=== PATIENT | female | born 1995 | race Caucasian/White ===

== ENCOUNTER 2019-10-07 08:00 | Outpatient (CLI) | payer OTHER | END 2019-10-07 23:59 | disposition home or self-care (01) | LOC: LAB.R 08:00 | PROVIDERS: ATTEND Obstetrics & Gynecology | DX: R30.0 Dysuria (principal) | CPT/HCPCS: 87086; 87181 ==

== ENCOUNTER 2019-10-28 12:18 | Outpatient (CLI) | payer OTHER ==
[2019-10-28 13:47] LABS: BASOPHILS % (AUTO) 0.4 %; EOSINOPHILS # (AUTO) 0.1 10^3/uL (0.0-0.7); EOSINOPHILS % (AUTO) 0.7 %; LYMPHOCYTES # (AUTO) 1.4 10^3/uL (1.5-3.5); MEAN CORPUSCULAR HEMOGLOBIN 33.1 pg (27.0-31.0); MEAN CORPUSCULAR HGB CONC 34.9 g/dL (32.0-36.0); MEAN CORPUSCULAR VOLUME 94.8 fL (81.0-99.0); MEAN PLATELET VOLUME 9.5 fL (7.9-10.8); MONOCYTES # (AUTO) 0.5 10^3/uL (0.0-1.0); MONOCYTES % (AUTO) 6.6 %; NEUTROPHILS # (AUTO) 5.6 10^3/uL (1.5-6.6); NEUTROPHILS % (AUTO) 73.6 %; PLT - PLATELET COUNT 206 10^3/uL (130-450); RED BLOOD COUNT 3.63 10^6/uL (4.20-5.40); RED CELL DISTRIBUTION WIDTH 12.6 % (12.0-15.0); WHITE BLOOD COUNT 7.5 x10^3/uL (4.8-10.8)
[2019-10-29 08:54] LABS: HIV AG/AB 4TH GEN NON-REACTIVE (NON-REACTIVE)
[2019-10-29 13:03] LABS: HEPATITIS B SURFACE ANTIGEN NON-REACTIVE (NON-REACTIVE); HEPATITIS C ANTIBODY NON-REACTIVE (NON-REACTIVE)
== END 2019-10-28 12:19 | disposition home or self-care (01) ==
LOC: LAB 12:18
PROVIDERS: ATTEND Obstetrics & Gynecology
DX: Z34.90 Encounter for supervision of normal pregnancy, unspecified, unspecified trimester (principal)
CPT/HCPCS: 36415; 81599; 82950; 85025; 85027; 86592; 86762; 86803; 86850; 86900; 86901; 87340; 87389

== ENCOUNTER 2019-12-19 08:00 | Outpatient (CLI) | payer OTHER ==
[2019-12-19 19:25] LABS: BILIRUBIN,URINE NEGATIVE (NEGATIVE); GLUCOSE, URINE (UA) NEGATIVE (NEGATIVE); KETONES,URINE (UA) TRACE mg/dL (NEGATIVE); LEUKOCYTE ESTERASE, URINE SMALL (NEGATIVE); NITRITE,URINE NEGATIVE (NEGATIVE); OCCULT BLOOD,URINE NEGATIVE (NEGATIVE); PH,URINE 7.5 PH (5.0-7.5); PROTEIN,URINE NEGATIVE (NEGATIVE); UROBILINOGEN,URINE 0.2 (NORMAL) E.U./dL (NORMAL)
[2019-12-19 19:32] LABS: CLARITY,URINE HAZY (CLEAR)
[2019-12-19 19:44] LABS: BACTERIA,URINE Moderate /HPF (None Seen); RBC,URINE 0-5 /HPF (0-5); SQUAMOUS EPITHELIAL CELL,UR NONE SEEN (<= Few)
== END 2019-12-19 23:59 | disposition home or self-care (01) ==
LOC: LAB.R 08:00
PROVIDERS: ATTEND Nurse Practitioner Obstetrics & Gynecology
DX: N39.0 Urinary tract infection, site not specified (principal)
CPT/HCPCS: 81001; 87086

== ENCOUNTER 2019-12-26 08:00 | Outpatient (CLI) | payer OTHER | END 2019-12-26 23:59 | disposition home or self-care (01) | LOC: LAB.R 08:00 | PROVIDERS: ATTEND Nurse Practitioner Obstetrics & Gynecology | DX: Z36.85 Encounter for antenatal screening for Streptococcus B (principal) | CPT/HCPCS: 87797 ==

== ENCOUNTER 2020-01-17 23:59 | Outpatient (CLI) | payer OTHER ==
[2020-01-18 00:48] VITALS: BP 125/80
[2020-01-18 01:20] LABS: BASOPHILS % (AUTO) 0.4 %; EOSINOPHILS # (AUTO) 0.1 10^3/uL (0.0-0.7); EOSINOPHILS % (AUTO) 0.8 %; HGB - HEMOGLOBIN 13.2 g/dL (12.0-16.0); LYMPHOCYTES # (AUTO) 2.2 10^3/uL (1.5-3.5); LYMPHOCYTES % (AUTO) 22.1 %; MEAN CORPUSCULAR HEMOGLOBIN 32.9 pg (27.0-31.0); MEAN CORPUSCULAR HGB CONC 35.4 g/dL (32.0-36.0); MEAN PLATELET VOLUME 9.8 fL (7.9-10.8); MONOCYTES # (AUTO) 0.9 10^3/uL (0.0-1.0); MONOCYTES % (AUTO) 8.8 %; NEUTROPHILS # (AUTO) 6.7 10^3/uL (1.5-6.6); NEUTROPHILS % (AUTO) 67.4 %; PLT - PLATELET COUNT 216 10^3/uL (130-450); RED BLOOD COUNT 4.01 10^6/uL (4.20-5.40); RED CELL DISTRIBUTION WIDTH 12.9 % (12.0-15.0)
[2020-01-18 01:41] LABS: BILIRUBIN,URINE NEGATIVE (NEGATIVE); GLUCOSE, URINE (UA) NEGATIVE (NEGATIVE); KETONES,URINE (UA) NEGATIVE (NEGATIVE); LEUKOCYTE ESTERASE, URINE TRACE (NEGATIVE); NITRITE,URINE NEGATIVE (NEGATIVE); OCCULT BLOOD,URINE NEGATIVE (NEGATIVE); PH,URINE 6.5 PH (5.0-7.5); PROTEIN,URINE NEGATIVE (NEGATIVE); UROBILINOGEN,URINE 0.2 (NORMAL) E.U./dL (NORMAL)
[2020-01-18 01:47] LABS: BACTERIA,URINE Rare /HPF (None Seen); CLARITY,URINE CLEAR (CLEAR); RBC,URINE None Seen /HPF (0-5); SQUAMOUS EPITHELIAL CELL,UR MANY Squamous (<= Few)
--- NOTE | 2020-01-18 07:26 | PROVIDER PROGRESS NOTE ---
- HPI Chief Complaint: Labor Check Current : Current EDU 01/17/20 Gestation 40 Weeks and 1 Days 1 Para 0 Vital Signs Temperature 36.7 C 01/18/20 00:32 Heart Rate 76 01/18/20 00:32 Respiratory Rate 18 01/18/20 00:32 Blood Pressure 125/80 01/18/20 00:32 O2 Saturation 99 01/18/20 00:32 Temperature 36.7 C 01/18/20 00:32 Heart Rate 76 01/18/20 00:32 Respiratory Rate 18 01/18/20 00:32 Blood Pressure 125/80 01/18/20 00:32 O2 Saturation 99 01/18/20 00:32 - Procedures OB Procedure Performed: NST NST Procedure: start time:9 stop time:37 - Plan Plan: S: Patient presents to [facility] with c/o contractions. She denies vaginal bleeding or leakage of fluid and reports +FM. She denies urinary symptoms and feels she has consumed an adequate amount of water today. O: FHR baseline 130s, moderate variability, + accels, no decels Contractions palpate mild every 2-3 minutes with soft resting tone SVE closed/thick/high, posterior BP 125/80, T 36.7, HR 76, RR 18 Hc.3 PLT 216 Urine - WNL A: 24yo @ 40.1wks gestation False labor P: Pt orally hydrated and walked x 1 hour without cervical change. Reviewed warning s/sx and when to present. Pt released home with precautions. DIAGNOSIS: FALSE Labor
== END 2020-01-18 01:55 | disposition home or self-care (01) ==
LOC: WFO 23:59 → FBP 01-18 → WFO 01-18 01:55
PROVIDERS: ATTEND Nurse Practitioner Obstetrics & Gynecology
DX: O47.1 False labor at or after 37 completed weeks of gestation (principal); Z3A.40 40 weeks gestation of pregnancy
CPT/HCPCS: 81001; 85025; 99214

== ENCOUNTER 2020-01-20 01:24 | Inpatient (IN) | payer OTHER ==
[2020-01-20 02:09] LABS: RUPTURE OF MEMBRANES PLUS POSITIVE (NEGATIVE)
[2020-01-20] MEDS ORDERED: miSOPROStoL 200 MCG TABLET BC PRN (02:36)
[2020-01-20] MEDS ORDERED: METHYLERGONOVINE 0.2 MG/ML VIAL IM PRN (02:36)
[2020-01-20] MEDS ORDERED: TRANEXAMIC ACID 1,000 MG in SODIUM CHLORIDE 0.9% 100ML 100 ML IV PRN (02:36)
[2020-01-20] MEDS ORDERED: OXYTOCIN/SODIUM CHLORIDE 500 ML IV PRN (02:36)
[2020-01-20] MEDS ORDERED: SODIUM CHLORIDE FLUSH 0.9% 10 ML SYRINGE IVP PRN (02:36)
[2020-01-20] MEDS ORDERED: CARBOPROST TROMETHAMINE 250 MCG/ML AMP IM PRN (02:36)
[2020-01-20] MEDS ORDERED: LIDOCAINE-MPF 1% 30 ML VIAL ID PRN (02:36)
[2020-01-20] MEDS ORDERED: OXYTOCIN 10 UNIT/ML VIAL IM PRN (02:36)
[2020-01-20 04:58] LABS: BASOPHILS % (AUTO) 0.3 %; EOSINOPHILS # (AUTO) 0.1 10^3/uL (0.0-0.7); EOSINOPHILS % (AUTO) 0.7 %; HGB - HEMOGLOBIN 12.4 g/dL (12.0-16.0); LYMPHOCYTES # (AUTO) 1.9 10^3/uL (1.5-3.5); LYMPHOCYTES % (AUTO) 22.1 %; MEAN CORPUSCULAR HEMOGLOBIN 33.1 pg (27.0-31.0); MEAN CORPUSCULAR HGB CONC 35.2 g/dL (32.0-36.0); MEAN CORPUSCULAR VOLUME 93.9 fL (81.0-99.0); MONOCYTES # (AUTO) 0.7 10^3/uL (0.0-1.0); MONOCYTES % (AUTO) 8.2 %; NEUTROPHILS # (AUTO) 5.9 10^3/uL (1.5-6.6); NEUTROPHILS % (AUTO) 68.4 %; PLT - PLATELET COUNT 190 10^3/uL (130-450); RED BLOOD COUNT 3.75 10^6/uL (4.20-5.40); RED CELL DISTRIBUTION WIDTH 12.8 % (12.0-15.0); WHITE BLOOD COUNT 8.6 x10^3/uL (4.8-10.8)
[2020-01-20] MEDS ORDERED: miSOPROStoL 100 MCG TABLET BC ONE (06:25)
[2020-01-20] MEDS ORDERED: SODIUM CHLORIDE FLUSH 0.9% 10 ML SYRINGE IVP SCH (09:00)
--- NOTE | 2020-01-20 12:13 | PREOP HISTORY & PHYSICAL ---
DATE OF SERVICE: 01/20/2020 Physician: Anthony Gabriel MD IDENTIFICATION The patient is a 24-year-old G1, P0 female. Her EDC was noted to be 01/17/2020, thi s makes her 40 weeks and 3 days. HISTORY OF PRESENT ILLNESS The patient states that at roughly 1 o'clock this morning she felt fluid leaking. She had minimal contractions at that time. She presented here and received misoprostol 25 mcg at 0639. Her OB care started with us at 25 weeks EGA. Her course has been unremarkab le. Her blood pressures have all been normal. Her labs show her to be O positive, she is rubella im mune. Her SDI check has all been negative. Her 50 gram Glucola was 109. Her GBS test was also negat odilia. PAST MEDICAL HISTORY The patient denies any hypertensive, diabetic, cardiac or pulmonary disease. PAST SURGICAL HISTORY Partial hymenectomy in 2018. ALLERGIES NONE KNOWN. CURRENT MEDICATIONS vitamins. She has also been taking nitrofurantoin for suppression for chronic UTIs. HABITS The patient denies use of alcohol, tobacco, street or addictive drugs. SOCIAL HISTORY The patient is and lives with her . She works as a homemaker. HABITS The patient denies use of alcohol, tobacco, street or addictive drugs, or any marijuana. PHYSICAL EXAMINATION GENERAL The patient is a well-developed, well-nourished female, she is thin in character. VITAL SIGNS Her temperature is 36.7. Her pulse rate is 82, and blood pressure 125/81. HEENT Pupils equal, round. Extraocular muscles are intact. NECK Thyroid is not palpably enlarged. HEART Regular rate and rhythm without murmurs. CHEST The lung wells are clear without rales or wheezes. ABDOMEN Gravid. At her most recent visit her fundal height was noted to be 39 cm. PELVIC Her cervical examination on admission was 1.5 cm, 50% effaced: EXTREMITIES DTRs are +1 and symmetrical. IMPRESSION 1. A 24-year-old primigravida at 40 weeks and 3 days. 2. Spontaneous rupture of membranes. 3. Unfavorable cervix. 4. The patient is in early labor. PLAN: Will reexamine in 4 hours and see if she is progressing. She appears to be developing contrac tions. I have discussed the issues of epidural and labor pain control. TD: 01/20/2020 09:34
--- NOTE | 2020-01-20 16:25 | PROVIDER PROGRESS NOTE ---
Labor Progress Note - Uterine Monitoring Uterine Monitoring Mode: positive: External toco Contraction Frequency (min/apart): 3-5 Contraction Intensity: positive: Moderate Uterine Resting Tone: positive: Soft - Monitoring Monitor Mode: positive: External ultrasound Heart Rate Baseline: 135 Heart Rate Variability: positive: Moderate (6-25 bmp) Accelerations: positive: Present, 15x15 Decelerations: positive: None Strip Review: positive: Category I - Vaginal Exam Dilation (in cm): 2 Effacement (%): 80 Station: -3 Cervical Position: Midposition - Labor Progress Note Labor Progress Note/Additional Text: Late entry 1400 Pr increasing pain and slow progress. sugested Pit with rupture of forebag.
--- NOTE | 2020-01-20 16:27 | PROVIDER PROGRESS NOTE ---
Labor Progress Note - Uterine Monitoring Uterine Monitoring Mode: positive: External toco Contraction Frequency (min/apart): 5 Contraction Intensity: positive: Moderate to strong Uterine Resting Tone: positive: Soft - Monitoring Monitor Mode: positive: External ultrasound Heart Rate Baseline: 135 Accelerations: positive: Present, 15x15 Decelerations: positive: None Strip Review: positive: Category I - Labor Progress Note Labor Progress Note/Additional Text: Contractions waning. Reviewed Pit pt would like to avoid if possible. Will walk if not strong will initiate, reviewed Fent and epidural.
[2020-01-20] MEDS ORDERED: ONDANSETRON 4 MG/2 ML VIAL IVP PRN (16:28)
[2020-01-20] MEDS ORDERED: OXYTOCIN/SODIUM CHLORIDE 500 ML IV SCH (17:18)
[2020-01-20] MEDS: LACTATED RINGERS 1,000 ML IV SCH (17:45)
--- NOTE | 2020-01-20 19:32 | PROVIDER PROGRESS NOTE ---
Labor Progress Note - Uterine Monitoring Uterine Monitoring Mode: positive: External toco Contraction Frequency (min/apart): 3-4 Contraction Intensity: positive: Moderate to strong Uterine Resting Tone: positive: Soft - Monitoring Heart Rate Baseline: 140 Heart Rate Variability: positive: Moderate (6-25 bmp) Accelerations: positive: Present, 15x15 Decelerations: positive: None Strip Review: positive: Category I - Vaginal Exam Dilation (in cm): 3 Effacement (%): 90 Station: -3 Cervical Position: Posterior - Labor Progress Note Labor Progress Note/Additional Text: AROM fore bag Clear fluid
[2020-01-20] MEDS ORDERED: fentaNYL 100 MCG/2 ML VIAL ONE (23:57)
[2020-01-20] MEDS ORDERED: BUPIVACAINE 0.25% PF 10 ML VIAL ONE (23:57)
[2020-01-20] MEDS ORDERED: ROPIVACAINE 0.2% 200 MG/100 ML BAG EP ONE (23:58)
[2020-01-21] MEDS: LACTATED RINGERS 1,000 ML IV SCH (00:16)
[2020-01-21] MEDS ORDERED: ROPIVACAINE 0.2% PF 20ML VIAL ONE (00:37)
[2020-01-21] MEDS ORDERED: NALOXONE 0.4 MG/ML VIAL IVP PRN (01:02)
[2020-01-21] MEDS ORDERED: ONDANSETRON 4 MG/2 ML VIAL IVP PRN (01:02)
[2020-01-21] MEDS ORDERED: METOCLOPRAMIDE 10 MG/2 ML VIAL IVP PRN (01:02)
[2020-01-21] MEDS ORDERED: diphenhydrAMINE INJ 50 MG/ML VIAL IVP PRN ×2 (01:02→06:28)
[2020-01-21] MEDS ORDERED: NALBUPHINE 10 MG/ML AMP IVP PRN (01:02)
[2020-01-21] MEDS ORDERED: ePHEDrine 50 MG/ML VIAL IVP PRN (01:02)
[2020-01-21] MEDS ORDERED: ROPIVACAINE 0.2% 200 MG/100 ML BAG EP PRN (01:02)
--- NOTE | 2020-01-21 01:02 | ANESTHESIA ---
Pre-Anesthesia VS, & Labs - Diagnosis active labor - Procedure labor epidural Vital Signs: Temp Pulse Resp BP Pulse Ox 36.7 C 82 16 125/81 H 99 01/20/20 02:25 01/20/20 01:36 01/20/20 01:36 01/20/20 01:36 01/20/20 01:36 Height: 5 ft 4 in Weight (kg): 69.853 kg Body Mass Index: 26.4 BMI Classification: Overweight - Is Patient ?: Yes - Lab Results Current Lab Results: Laboratory Tests 01/20/20 03:10: WBC 8.6, RBC 3.75 L, Hgb 12.4, Hct 35.2 L, MCV 93.9, MCH 33.1 H, MCHC 35.2, RDW 12.8, Plt Count 190, MPV 10.0, Neut # (Auto) 5.9, Lymph # (Auto) 1.9, [place] # (Auto) 0.7, Eos # (Auto) 0.1, Baso # (Auto) 0.0, Absolute Nucleated RBC 0.00, Nucleated RBC % 0.0 01/20/20 03:10: Blood Type O POSITIVE, Antibody Screen NEGATIVE Lab results reviewed: Yes Fish Bones: 01/20/20 03:10 Home Medications and Allergies Active Medications Carboprost Tromethamine (Hemabate) 250 mcg IM Q15M PRN PRN Reason: Step 4: Hemorrhage protocol Stop: 01/25/20 02:37 Oxytocin/Sodium Chloride (Pitocin/Sodium Chloride) 500 mls @ 999 mls/hr IV PRN PRN; Protocol PRN Reason: POST- HEMORR PREVENTION Stop: 01/25/20 02:37 Tranexamic Acid 1,000 mg/ (Sodium Chloride) 110 mls @ 660 mls/hr IV .ONCE PRN PRN Reason: EBL >1200mL and within 3hr Stop: 01/25/20 02:37 Lactated Ringer's (Lr) 1,000 mls @ 150 mls/hr IV .Q6H40M NI Last Admin: 01/21/20 00:16 Dose: 150 mls/hr Documented by: Oxytocin/Sodium Chloride (Pitocin/Sodium Chloride) 500 mls @ 1 mls/hr IV TITR NI; Protocol Last Titration: 01/20/20 18:25 Dose: 2 milliunit/min, 2 mls/hr Documented by: Lidocaine HCl (Xylocaine-Mpf 1% Vial) 30 ml ID .ONCE PRN PRN Reason: PERINEAL REPAIR Stop: 01/25/20 02:37 Methylergonovine Maleate (Methergine Inj) 0.2 mg IM .ONCE PRN PRN Reason: Step 2: Hemorrhage protocol Stop: 01/25/20 02:37 Misoprostol (Cytotec) 800 mcg BC .ONCE PRN PRN Reason: Step 3: Hemorrhage protocol Stop: 01/25/20 02:37 Ondansetron HCl (Zofran Inj) 4 mg IVP Q6HR PRN PRN Reason: Nausea / Vomiting Oxytocin (Pitocin) 10 unit IM .ONCE PRN PRN Reason: Step one: If no IV access Stop: 01/25/20 02:37 Sodium Chloride (Normal Saline Flush 0.9%) 10 ml IVP PRN PRN PRN Reason: NEEDED PER PROVIDER ORDERS Sodium Chloride (Normal Saline Flush 0.9%) 10 ml IVP 0100,0900,1700 NI Last Admin: 01/20/20 17:45 Dose: 10 ml Documented by: Allergies/Adverse Reactions: Allergies Allergy/AdvReac Type Severity Reaction Status Date / Time No Known Drug Allergies Allergy Verified 01/20/20 02:30 Anes History & Medical History - Anesthetic History Anesthesia Complications: reports: No previous complications Family history of Anesthesia Complications: Denies Family history of Malignant Hyperthermia: Denies - Medical History Neuro: reports: Other (history of mild spina bifida) Smoking Status: Never smoker Exam General: Alert, Oriented x3, Cooperative, No acute distress Plan Anesthesia Type: Epidural Consent for Procedure(s) Verified and Reviewed: Yes Code Status: Attempt Resuscitation ASA classification: 2-Mild systemic disease Is this case an emergency?: No
[2020-01-21] MEDS ORDERED: WITCH HAZEL/GLYCERIN 1 PAD TOP PRN (06:05)
[2020-01-21] MEDS ORDERED: HYDROCORTISONE 1% CREAM 28 GM TUBE PR PRN (06:05)
[2020-01-21] MEDS ORDERED: oxyCODONE 5 MG TABLET PO PRN (06:05)
[2020-01-21] MEDS ORDERED: diphenhydrAMINE 25 MG CAPSULE PO PRN (06:05)
--- NOTE | 2020-01-21 06:16 | DELIVERY NOTE ---
Delivery Note - Labor Labor: positive: Spontaneous, Augmented by oxytocin - Delivery Method Delivery Method: positive: Spontaneous vaginal delivery - Cervical Ripening Method Cervical Ripening Method: positive: Misoprostil - Presentation Presentation: positive: Vertex, NATHANIEL - left occiput anterior - Nuchal Cord Nuchal Cord: positive: None - Anesthetic Anesthetic Type: - Amniotic Fluid Description Amniotic Fluid Description: positive: Clear - Episiotomy Type Episiotomy Type: positive: None - Laceration Laceration: positive: None - : positive: Placed in direct skin contact with mother, Bulb syringe, Stimulated sex: positive: Male - Cord Cord: positive: 3 vessels - Placenta Placenta: positive: Intact, Spontaneous - Estimated Blood Loss Estimated Blood Loss (in cc): 250 - Post Delivery Events Post Delivery Events: positive: No post delivery events - Delivery Comments (Free Text/Narrative) Delivery Comments (Free Text/Narrative): Patient believes she spontaneously ruptured at 0 45 on the morning of the 12th. Pt presented at about 4:00. She had contractions but was not doing anything arturo t was strong. Patient was resistant to the use of any kind of Pitocin. She received misoprostol for cervical ripening. She had a fore bag ruptured at 1927 clear amniotic fluid was encountered. Patient initially eventually had Pitocin for contractions. She relinquished and had an epidural for labor analgesia. This helped her relax significantly. She progressed to complete at 0 426. And started pushing soon thereafter. At 0 545 she delivered a live male with Apgars 8 and 9 in the left occiput anterior position. No nuchal cords are noted at time of delivery. Infant was placed on the maternal abdomen waiting for the cord to stop pulsating and then was clamped and divided. Cord blood samples were obtained and following a 13-minute second stage the placenta was delivered inspected and noted to be intact. The vaginal canal was inspected there was some minor tears in the hymenal ring however there were no vaginal labial or perineal lacerations. Her total blood loss was roughly 250 cc both mother and infant tolerated delivery well. weight is pending at this time.
[2020-01-21] MEDS ORDERED: LACTATED RINGERS 1,000 ML IV SCH (07:00)
[2020-01-21] MEDS: ACETAMINOPHEN 325 MG TABLET PO PRN ×2 (08:23→20:00)
[2020-01-21] MEDS: IBUPROFEN 600 MG TABLET PO SCH ×3 (08:23→19:57)
[2020-01-21] MEDS ORDERED: DOCUSATE SODIUM 100 MG CAPSULE PO SCH (09:00)
[2020-01-22] MEDS: IBUPROFEN 600 MG TABLET PO SCH ×2 (03:07→11:37)
[2020-01-22] MEDS: ACETAMINOPHEN 325 MG TABLET PO PRN ×2 (03:07→11:37)
[2020-01-22 05:34] LABS: BASOPHILS # (AUTO) 0.1 10^3/uL (0.0-0.1); BASOPHILS % (AUTO) 0.5 %; EOSINOPHILS # (AUTO) 0.1 10^3/uL (0.0-0.7); EOSINOPHILS % (AUTO) 0.9 %; HGB - HEMOGLOBIN 10.4 g/dL (12.0-16.0); LYMPHOCYTES # (AUTO) 2.1 10^3/uL (1.5-3.5); LYMPHOCYTES % (AUTO) 19.8 %; MEAN CORPUSCULAR HEMOGLOBIN 33.4 pg (27.0-31.0); MEAN CORPUSCULAR HGB CONC 35.4 g/dL (32.0-36.0); MEAN CORPUSCULAR VOLUME 94.5 fL (81.0-99.0); MEAN PLATELET VOLUME 9.8 fL (7.9-10.8); MONOCYTES # (AUTO) 0.9 10^3/uL (0.0-1.0); MONOCYTES % (AUTO) 8.8 %; NEUTROPHILS # (AUTO) 7.3 10^3/uL (1.5-6.6); NEUTROPHILS % (AUTO) 69.3 %; PLT - PLATELET COUNT 162 10^3/uL (130-450); RED BLOOD COUNT 3.11 10^6/uL (4.20-5.40); RED CELL DISTRIBUTION WIDTH 13.1 % (12.0-15.0); WHITE BLOOD COUNT 10.5 x10^3/uL (4.8-10.8)
--- NOTE | 2020-01-22 09:04 | PROVIDER PROGRESS NOTE ---
Subjective - Prog Note Date Prog Note Date: 01/22/20 Prog Note Time: 09:02 - Subjective Pt reports feeling: Improved ([place] 04/18 feels brused. milk not in. desires to go home) Objective - Vital Signs/Intake & Output Reviewed Vital Signs: Yes Vital Signs: Vital Signs x48h Temp Pulse Resp BP Pulse Ox 01/22/20 04:00 36.8 C 71 16 99/51 L 98 Intake & Output: Intake & Output 01/19/20 01/20/20 01/21/20 01/22/20 23:59 23:59 23:59 23:59 Intake Total 0.683 1077.5 Output Total 1600 Balance 0.683 -522.5 - Objective General Appearance: positive: No acute distress, Alert Respiratory: positive: Chest non-tender, No respiratory distress, Breath sounds nml Cardiovascular: positive: Regular rate & rhythm, No murmur, No gallop Abdomen: positive: Non-tender, Mass (at U) Back: negative: CVA tenderness (R), CVA tenderness (L) Extremities: negative: Calf tenderness, Sadnra's sign/cords - Lab Results Fish Bones: 01/22/20 05:20 Other Labs: Lab Results x24hrs 01/22/20 Range/Units 05:20 WBC 10.5 (4.8-10.8) x10^3/uL RBC 3.11 L (4.20-5.40) 10^6/uL Hgb 10.4 L (12.0-16.0) g/dL Hct 29.4 L (37.0-47.0) % MCV 94.5 (81.0-99.0) fL MCH 33.4 H (27.0-31.0) pg MCHC 35.4 (32.0-36.0) g/dL RDW 13.1 (12.0-15.0) % Plt Count 162 (130-450) 10^3/uL MPV 9.8 (7.9-10.8) fL Neut # (Auto) 7.3 H (1.5-6.6) 10^3/uL Lymph # (Auto) 2.1 (1.5-3.5) 10^3/uL [place] # (Auto) 0.9 (0.0-1.0) 10^3/uL Eos # (Auto) 0.1 (0.0-0.7) 10^3/uL Baso # (Auto) 0.1 (0.0-0.1) 10^3/uL Absolute Nucleated RBC 0.00 x10^3/uL Nucleated RBC % 0.0 /100WBC Assessment/Plan - Problem List (1) (spontaneous vaginal delivery) Impression: Excellent progress
[2020-01-22 14:57] VITALS: BP 108/58
--- NOTE | 2020-01-22 16:35 | Labor Flowsheet ---
Labor Flowsheet Datetime Report Generated by CPN: 01/22/2020 16:34 Datetime: 01/22/2020 14:53 VITAL SIGNS NBP Sys/[place]ald/Mean (mmHg): 108 : 58 : 68 Pulse: 87 Datetime: 01/21/2020 19:12 Stage of : Recovery Respirations: 16 SpO2 (%): 98 Temperature (C): 36.7 Datetime: 01/21/2020 08:01 Epidural Procedure Other: Cath Intact Anesthesia Comments: cath removed Datetime: 01/21/2020 07:00 Pain Presence: None/Denies Datetime: 01/21/2020 06:45 PAIN Pain Scale: 0 Datetime: 01/21/2020 05:54 LaborFlag: Labor Datetime: 01/21/2020 05:45 UTERINE ACTIVITY Monitor Mode: External Frequency (min): 1.5-3 Quality: Strong Duration (sec): 50-80 Pattern: Normal: <= 5 Contractions in 10 Minutes Resting Tone (Palpate): Relaxed ASSESSMENT A Monitor Mode: Telemetry FHR Baseline Rate : 145 Datetime: 01/21/2020 05:30 Variability: Moderate 6-25 bpm Accelerations: 15X15 Decelerations: Variable Anesthesia Level Check: T9 Datetime: 01/21/2020 04:55 Patient Care Comments: emesis 200ml Datetime: 01/21/2020 04:54 I/O Interventions: [place] Discontinued Datetime: 01/21/2020 04:45 COMMUNICATION Communication: Call/Page Placed to Provider Provider Notified (Name): Giem Communication Comments: Come to attend delivery Datetime: 01/21/2020 04:43 Pushing Position: Pushing with Contractions Pushing Progress: Descent with Pushing Datetime: 01/21/2020 04:27 STAGE 2 Pushing: Coached on Pushing Datetime: 01/21/2020 04:26 VAGINAL EXAM Dilatation (cm): 10.0 Datetime: 01/21/2020 02:39 Temperature Route: Oral Pain Type: Cramping Datetime: 01/21/2020 02:35 Vaginal Exam Comments: ant lip Datetime: 01/21/2020 02:00 Pitocin Checklist: At Least 1 Acceleration of 15 bpm x 15 Seconds in 30 Minutes or Adequate Variabi lity; No More than 1 Late Deceleration Occurred in Past 30 Minutes; No More than 2 Variable Decelerat ions > 60 Seconds in Duration and decreasing >60 bpm in 30 minutes; No More than 5 Uterine Contractio ns in 10 Minutes for any 20 Minute Interval; Uterus Palpates Soft between Contractions Datetime: 01/21/2020 01:45 FHR Baseline Changes: No Baseline Change Datetime: 01/21/2020 01:22 Patient Position/Activity: Right Lateral (Annotations: with peanut ball) Datetime: 01/21/2020 01:19 MEDICATIONS Pitocin (milliunits): Increased to @ 3 Datetime: 01/21/2020 01:00 Monitor Interventions for UA: [place] Adjusted Datetime: 01/21/2020 00:48 Epidural Procedure: Test Dose Datetime: 01/21/2020 00:45 Pain Location: Abdomen; Back Datetime: 01/21/2020 00:39 Epidural Positioning: Sitting Datetime: 01/20/2020 23:55 PROCEDURE TIME OUT Procedure Verify: Correct Patient Identity; Correct Side and Site are Marked; Accurate Procedure Co nsent Form; Agreement on Procedure to be Done; Correct Patient Position ANESTHESIA Anesthesia Plans: Epidural Datetime: 01/20/2020 23:37 Hygiene: Underpad Changed; Gown Changed; Linens Changed Datetime: 01/20/2020 23:20 Effacement (%): 90 Station: 0 Datetime: 01/20/2020 22:20 Comfort Measures: Breathing/Relaxation; Hot Shower/Tub/Spa Datetime: 01/20/2020 22:09 Cervix, Consistency: Soft Cervix, Position: Midposition Datetime: 01/20/2020 20:15 Category: Category I Datetime: 01/20/2020 20:00 Monitor Interventions for FHR: Ultrasound Adjusted Datetime: 01/20/2020 19:27 Exam by: dr Giem Membrane Status: Ruptured Amniotic Fluid Color: Clear Amniotic Fluid Amount: Moderate Amniotic Fluid Odor: Normal Membrane Comments: rupture of forebag Datetime: 01/20/2020 17:46 Pain Goal: 10 Pain Coping: Talking Through Contractions; Breathing Through Contractions Datetime: 01/20/2020 17:45 Medication Comments: LR #1 started at 150ml/hr Datetime: 01/20/2020 17:02 Comments: maternal heart recorded Datetime: 01/20/2020 14:00 Vaginal Bleeding: Normal Show Datetime: 01/20/2020 13:10 Pain Relief Measures: Comfort Measures Datetime: 01/20/2020 10:22 Contraction Comments: ctx unchanged per Pt. Datetime: 01/20/2020 09:33 MATERNAL ASSESSMENT Level of Consciousness: Alert DTR's/Clonus: DTRs 2+; No Clonus Headache: Denies Nausea/Vomiting: Present RUQ Epigastric Pain: Denies Datetime: 01/20/2020 09:31 PATIENT CARE Oxygen Method: Room Air Datetime: 01/20/2020 07:22 TEACHING Instructional Method: Verbal Plan of Care: Plan of Care Discussed; Vaginal Delivery; Labor Unit Routine: Call [place]; Bed; Phone/Cell Phone Use; Monitoring; Safety/Fall Risk Prevention; Diet/Nutrition Services; Bathroom Privileges; Medications Labor/Induction: Labor Stages; Meconium; Activity; Pushing Methods Pain Management: IV Narcotics; Epidural; PRN Medications; Comfort Measures Medications: Cervical Ripening PTL/PROM: Hydration; Signs/Symptoms of Infection; Expected Outcomes Related: Common Discomforts of ; Maternal Physical Changes; Maternal Emotional C hanges; Nutrition; Activity and Rest Teaching Comments: Both pt. and spouse verbalized understanding. Datetime: 01/20/2020 06:40 Cervical Ripening Agents: Cytotec @ Datetime: 01/20/2020 06:18 Provider Reviewed Strip: No Notification Reason: Status Update; Status; Labor Status; Uterine Activity; Pain Datetime: 01/20/2020 06:04 Vital Sign Comments:
--- NOTE | 2020-01-22 16:51 | DISCHARGE SUMMARY ---
Physician: Anthony Gabriel MD DATE OF ADMISSION: 01/20/2020 DATE OF DISCHARGE: 01/22/2020 ADMITTING DIAGNOSIS: A 24-year-old G1, P0 female with spontaneous rupture of membranes at 40 weeks and 3 days. DISCHARGE DIAGNOSIS: A 24-year-old G1, P0 female with spontaneous rupture of membranes at 40 weeks and 3 days. PROCEDURES 1. Misoprostol. 2. Pitocin augmentation. 3. Epidural. 4. Spontaneous vaginal delivery. PRESENTING HISTORY: Patient is a 24-year-old 1, para 0, who is 40 weeks and 3 days upon admission at roughly 1 a.m. in the morning. She felt leaking of vaginal fluid. She presented to labor and delivery, at which time her cervical exam showed her to be fingertip, 50% effaced. Her OB care was unremarkable. Her 50 gram Glucola was 109. She was rubella immune, and she was noted to be O positive. LABORATORIES On admission, white count was 8.6, hemoglobin 12.4, hematocrit 35.2, platelets 190. On 01/22/2020, her white count was 10.5, hemoglobin 10.4, hematocrit 29.4, platelets 164. Patient also had positive ROM plus test. HOSPITAL COURSE: Patient was admitted, given misoprostol for cervical ripening. She was very reticent to utilize any Pitocin or epidural. She has shown little or no progress, and so she had her forebag artificially ruptured. Her labor did not become very strong at that time, so Pitocin was administered. She got up 3 units. She developed difficulty with pain and had an epidural placed for labor analgesia. At this point, her cervix went fairly quickly to complete. She delivered a live male at 0545. Apgars were 8 and 9. Her total blood loss was 250 mL. Her course has been unremarkable. She has done well. She is very desirous to go home. She is aware of our usual practice of keeping mothers here for 48 hours, particularly if they are a primigravida. Her has been discharged by pediatrics; therefore, we will allow her to go home. DISCHARGE MEDICATIONS: Tylenol. She is to follow up in the clinic in 1 week. She has been cautioned regarding infection. TD: 01/22/2020 13:36 [facility]
== END 2020-01-22 16:15 | disposition home or self-care (01) | DRG 805 ==
LOC: WFO 01:24 → FBP 01:25 → WFO 02:35 → FBP 02:36
PROVIDERS: ADMIT Obstetrics & Gynecology; ATTEND Obstetrics & Gynecology
PROC: 10E0XZZ Delivery of Products of Conception, External Approach (ICD-10-PCS; principal; 2020-01-21)
DX: O48.0 Post-term pregnancy (principal); O70.0 First degree perineal laceration during delivery; O75.3 Other infection during labor; Z37.0 Single live birth; Z3A.40 40 weeks gestation of pregnancy; Z79.899 Other long term (current) drug therapy
CPT/HCPCS: 36415; 84112; 85025; 86850; 86900; 86901; 99213; A9270; J2795; J7120

== ENCOUNTER 2020-05-03 08:00 | Outpatient (CLI) | payer OTHER ==
[2020-05-03 20:57] LABS: CANDIDA GROUP DNA NEGATIVE (NEGATIVE); CANDIDA KRUSEI DNA NEGATIVE (NEGATIVE); TRICHOMONAS VAGINALIS DNA NEGATIVE (NEGATIVE)
== END 2020-05-03 23:59 | disposition home or self-care (01) ==
LOC: LAB.R 08:00
PROVIDERS: ATTEND Advanced Practice Midwife
DX: B37.9 Candidiasis, unspecified (principal)
CPT/HCPCS: 87661; 87801

== ENCOUNTER 2020-12-22 08:00 | Outpatient (CLI) | payer OTHER ==
[2020-12-22 23:04] LABS: CHLAMYDIA TRACHOMATIS DNA NEGATIVE (NEGATIVE); NEISSERIA GONORRHOEAE DNA NEGATIVE (NEGATIVE); TRICHOMONAS VAGINALIS DNA NEGATIVE (NEGATIVE)
== END 2020-12-22 23:59 | disposition home or self-care (01) ==
LOC: LAB.WC 08:00
PROVIDERS: ATTEND Nurse Practitioner Obstetrics & Gynecology
DX: N89.8 Other specified noninflammatory disorders of vagina (principal)
CPT/HCPCS: 87491; 87591; 87661

== ENCOUNTER 2021-04-22 17:16 | Outpatient (CLI) | payer OTHER | END 2021-04-22 17:17 | disposition home or self-care (01) | LOC: LAB 17:16 | PROVIDERS: ATTEND Obstetrics & Gynecology | DX: Z32.01 Encounter for pregnancy test, result positive (principal) | CPT/HCPCS: 36415; 84702 ==

== ENCOUNTER 2021-05-02 08:00 | Outpatient (CLI) | payer OTHER | END 2021-05-02 23:59 | LOC: LAB 08:00 | PROVIDERS: ATTEND Family Medicine | DX: R30.0 Dysuria (principal) | CPT/HCPCS: 87077; 87086; 87181 ==

== ENCOUNTER 2021-05-10 13:33 | Outpatient (CLI) | payer OTHER | END 2021-05-10 13:34 | disposition home or self-care (01) | LOC: LAB 13:33 | PROVIDERS: ATTEND Obstetrics & Gynecology | DX: Z32.01 Encounter for pregnancy test, result positive (principal) | CPT/HCPCS: 36415; 84702 ==

== ENCOUNTER 2021-05-11 08:00 | Outpatient (CLI) | payer OTHER ==
[2021-05-11 13:40] LABS: BILIRUBIN,URINE NEGATIVE (NEGATIVE); GLUCOSE, URINE (UA) NEGATIVE (NEGATIVE); KETONES,URINE (UA) NEGATIVE (NEGATIVE); LEUKOCYTE ESTERASE, URINE NEGATIVE (NEGATIVE); NITRITE,URINE NEGATIVE (NEGATIVE); OCCULT BLOOD,URINE NEGATIVE (NEGATIVE); PROTEIN,URINE NEGATIVE (NEGATIVE); UROBILINOGEN,URINE 0.2 (NORMAL) E.U./dL (NORMAL)
[2021-05-11 13:44] LABS: CLARITY,URINE CLEAR (CLEAR)
[2021-05-11 13:48] LABS: BACTERIA,URINE Few /HPF (None Seen); RBC,URINE 0-5 /HPF (0-5); SQUAMOUS EPITHELIAL CELL,UR FEW Squamous (<= Few); WBC,URINE 0-3 /HPF (0-5)
== END 2021-05-11 23:59 | disposition home or self-care (01) ==
LOC: LAB 08:00
PROVIDERS: ATTEND Obstetrics & Gynecology
DX: R30.0 Dysuria (principal)
CPT/HCPCS: 81001; 87086

== ENCOUNTER 2021-06-21 10:28 | Outpatient (CLI) | payer OTHER | END 2021-06-21 10:29 | disposition home or self-care (01) | LOC: LAB 10:28 | PROVIDERS: ATTEND Nurse Practitioner Obstetrics & Gynecology | DX: O20.0 Threatened abortion (principal) | CPT/HCPCS: 36415; 84702 ==

== ENCOUNTER 2021-06-28 13:50 | Outpatient (CLI) | payer OTHER ==
[2021-06-28 15:41] LABS: BILIRUBIN,URINE NEGATIVE (NEGATIVE); CLARITY,URINE HAZY (CLEAR); GLUCOSE, URINE (UA) NEGATIVE (NEGATIVE); KETONES,URINE (UA) NEGATIVE (NEGATIVE); LEUKOCYTE ESTERASE, URINE LARGE (NEGATIVE); NITRITE,URINE POSITIVE (NEGATIVE); OCCULT BLOOD,URINE LARGE (NEGATIVE); PH,URINE 7.5 PH (5.0-7.5); PROTEIN,URINE 30 mg/dL (NEGATIVE); UROBILINOGEN,URINE 0.2 (NORMAL) E.U./dL (NORMAL)
[2021-06-28 16:30] LABS: BACTERIA,URINE Few /HPF (None Seen); SQUAMOUS EPITHELIAL CELL,UR RARE Squamous (<= Few)
== END 2021-06-28 13:51 | disposition home or self-care (01) ==
LOC: LAB 13:50
PROVIDERS: ATTEND Nurse Practitioner Obstetrics & Gynecology
DX: R30.9 Painful micturition, unspecified (principal)
CPT/HCPCS: 81001; 87086

== ENCOUNTER 2021-09-19 12:11 | Outpatient (CLI) | payer OTHER ==
[2021-09-19 12:37] LABS: ALBUMIN 4.6 g/dL (3.2-5.5); ALBUMIN/GLOBULIN RATIO 1.5 (1.0-2.2); BILIRUBIN,TOTAL 0.6 mg/dL (0.2-1.0); CALCIUM 9.4 mg/dL (8.5-10.3); CREATININE 0.8 mg/dL (0.4-1.0); POTASSIUM 3.7 mmol/L (3.5-5.0); TOTAL PROTEIN 7.7 g/dL (6.7-8.2)
[2021-09-19 12:56] LABS: THYROID STIMULATING HORMONE 2.45 uIU/mL (0.34-5.60)
[2021-09-19 12:58] LABS: FREE T4 (FREE THYROXINE) 1.12 ng/dL (0.58-1.64)
[2021-09-19 13:01] LABS: PROLACTIN 9.24 ng/mL
== END 2021-09-19 12:12 | disposition home or self-care (01) ==
LOC: LAB 12:11
PROVIDERS: ATTEND Nurse Practitioner Obstetrics & Gynecology
DX: N64.3 Galactorrhea not associated with childbirth (principal)
CPT/HCPCS: 36415; 80053; 84146; 84439; 84443; 84702

== ENCOUNTER 2021-10-06 11:52 | Outpatient (CLI) | payer OTHER ==
[2021-10-06 12:31] LABS: THYROID STIMULATING HORMONE 1.58 uIU/mL (0.34-5.60)
[2021-10-06 12:33] LABS: FREE T4 (FREE THYROXINE) 1.09 ng/dL (0.58-1.64)
== END 2021-10-06 11:53 | disposition home or self-care (01) ==
LOC: LAB 11:52
PROVIDERS: ATTEND Nurse Practitioner Obstetrics & Gynecology
DX: E03.9 Hypothyroidism, unspecified (principal)
CPT/HCPCS: 36415; 84439; 84443

== ENCOUNTER 2022-01-09 15:22 | Emergency (ER) | payer OTHER ==
[2022-01-09 16:30] LABS: BASOPHILS % (AUTO) 0.4 %; EOSINOPHILS % (AUTO) 0.4 %; HCT - HEMATOCRIT 41.6 % (37.0-47.0); HGB - HEMOGLOBIN 14.6 g/dL (12.0-16.0); LYMPHOCYTES # (AUTO) 1.2 10^3/uL (1.5-3.5); LYMPHOCYTES % (AUTO) 21.2 %; MEAN CORPUSCULAR HEMOGLOBIN 31.3 pg (27.0-31.0); MEAN CORPUSCULAR HGB CONC 35.1 g/dL (32.0-36.0); MEAN CORPUSCULAR VOLUME 89.3 fL (81.0-99.0); MEAN PLATELET VOLUME 9.5 fL (7.9-10.8); MONOCYTES # (AUTO) 0.4 10^3/uL (0.0-1.0); MONOCYTES % (AUTO) 6.2 %; NEUTROPHILS # (AUTO) 4.1 10^3/uL (1.5-6.6); NEUTROPHILS % (AUTO) 71.6 %; PLT - PLATELET COUNT 226 10^3/uL (130-450); RED BLOOD COUNT 4.66 10^6/uL (4.20-5.40); RED CELL DISTRIBUTION WIDTH 11.9 % (12.0-15.0); WHITE BLOOD COUNT 5.7 x10^3/uL (4.8-10.8)
[2022-01-09 16:39] LABS: CALCIUM 9.2 mg/dL (8.5-10.3); CREATININE 0.6 mg/dL (0.4-1.0); POTASSIUM 3.8 mmol/L (3.5-5.0)
[2022-01-09] MEDS ORDERED: SODIUM CHLORIDE 0.9% 1,000 ML IV STA (17:18)
[2022-01-09] MEDS ORDERED: ONDANSETRON 4 MG/2 ML VIAL IVP STA (17:18)
--- NOTE | 2022-01-09 17:21 | ED Physician Documentation ---
History of Present Illness - Stated complaint Stated Complaint: VOMITING - Chief complaint Chief Complaint: Abd Pain - Additonal information Additional information: 26-year-old female presents to the emergency department for evaluation of 2 to 3 days uncontrolled vomiting. Currently G4, . LMP 10/20/2021. Patient reports that with her 1 successful she did have hyperemesis that responded well to Zofran. Patient is scheduled to establish with Karla Wang tomorrow and has been taking Reglan for the nausea without relief. Otherwise she has been taking levothyroxine for her history of hypothyroidism. No pertinent past surgical history. This is a desired . Review of Systems Constitutional: reports: Reviewed and negative Nose: reports: Reviewed and negative Cardiac: reports: Reviewed and negative Respiratory: reports: Reviewed and negative GI: reports: Nausea, Vomiting. denies: Abdominal Pain : reports: Reviewed and negative Skin: reports: Reviewed and negative PD PAST MEDICAL HISTORY - Past Medical History Neuro: Other (history of mild spina bifida) - Present Medications Home Medications: Ambulatory Orders Medication Instructions Recorded Confirmed Ondansetron Odt [Zofran] 4 mg TL Q6H PRN #20 tablet 01/09/22 - Allergies Allergies/Adverse Reactions: Allergies Allergy/AdvReac Type Severity Reaction Status Date / Time No Known Drug Allergies Allergy Verified 01/09/22 15:36 - Social History Smoking Status: Never smoker PD ED PE NORMAL - General General: Alert and oriented X 3, No acute distress - HEENT HEENT: PERRL - Cardiac Cardiac: RRR, No murmur - Respiratory Respiratory: No respiratory distress, Clear bilaterally - Abdomen Abdomen: Normal bowel sounds, Soft, Non tender, Non distended - Back Back: No CVA TTP - Derm Derm: Normal color, Warm and dry - Extremities Extremities: No deformity, No tenderness to palpate, Normal ROM s pain - Neuro Neuro: Alert and oriented X 3, grinder needle tip 2-12 intact Eye Opening: Spontaneous Motor: Obeys Commands Verbal: Oriented GCS Score: 15 Results - Vitals Vitals: Vital Signs - 24 hr 01/09/22 01/09/22 01/09/22 15:31 15:35 17:35 Temperature 36.4 C L 36.5 C Heart Rate 88 88 60 Respiratory 14 14 16 Rate Blood Pressure 104/60 104/60 110/60 O2 Saturation 99 99 100 Oxygen O2 Source Room air - Labs Labs: Laboratory Tests 01/09/22 01/09/22 01/09/22 16:24 16:24 16:24 WBC 5.7 RBC 4.66 Hgb 14.6 Hct 41.6 MCV 89.3 MCH 31.3 H MCHC 35.1 RDW 11.9 L Plt Count 226 MPV 9.5 Neut # (Auto) 4.1 Lymph # (Auto) 1.2 L [place] # (Auto) 0.4 Eos # (Auto) 0.0 Baso # (Auto) 0.0 Absolute Nucleated RBC 0.00 Nucleated RBC % 0.0 Sodium 134 L Potassium 3.8 Chloride 102 Carbon Dioxide 23 Anion Gap 9.0 BUN 9 Creatinine 0.6 Estimated GFR (MDRD) 122 Glucose 91 Calcium 9.2 HCG, Quant 603771.00 Urine Color Urine Clarity Urine pH Ur Specific [place] Urine Protein Urine Glucose (UA) Urine Ketones Urine Occult Blood Urine Nitrite Urine Bilirubin Urine Urobilinogen Ur Leukocyte Esterase Urine RBC Urine WBC Ur Squamous Epith Cells Amorphous Sediment Urine Bacteria Urine Mucus Ur Microscopic Review Urine Culture Comments Blood Type 01/09/22 01/09/22 16:24 17:21 WBC RBC Hgb Hct MCV MCH MCHC RDW Plt Count MPV Neut # (Auto) Lymph # (Auto) [place] # (Auto) Eos # (Auto) Baso # (Auto) Absolute Nucleated RBC Nucleated RBC % Sodium Potassium Chloride Carbon Dioxide Anion Gap BUN Creatinine Estimated GFR (MDRD) Glucose Calcium HCG, Quant Urine Color YELLOW Urine Clarity HAZY Urine pH 7.5 Ur Specific [place] 1.015 Urine Protein 30 H Urine Glucose (UA) NEGATIVE Urine Ketones >=80 H Urine Occult Blood NEGATIVE Urine Nitrite NEGATIVE Urine Bilirubin NEGATIVE Urine Urobilinogen 0.2 (NORMAL) Ur Leukocyte Esterase SMALL H Urine RBC 0-5 Urine WBC 6-10 H Ur Squamous Epith Cells MANY Squamous H Amorphous Sediment Few Urine Bacteria Many H Urine Mucus Marked Strands Ur Microscopic Review INDICATED Urine Culture Comments NOT INDICATED Blood Type O POSITIVE - Rads (name of study) OB US Radiology: Other (Per geodetic surveyor technologist live IUP 7 weeks 2 days with good heart rate. 2 small subchorionic hemorrhages. 3 right ovarian cyst that appears simple.) PD MEDICAL DECISION MAKING - ED course Complexity details: reviewed results, re-evaluated patient, considered differential, d/w patient, d/w family ED course: 26-year-old female presents emergency department for 2 days of uncontrolled nausea and vomiting the first trimester of . G4, . She reports that with her 1 successful she had significant hyperemesis. She has been taking Reglan as well as Diclegis without relief of symptoms. Here in the emergency department her CBC and electrolytes are without worrisome findings. Her urinalysis is concerning for bacteriuria. When I discussed this finding with the patient she reported that she has a history of vulvodynia as well as interstitial cystitis and she declines any antibiotics at this time. And ultrasound confirms a single live IUP at 7 weeks 2 days with 2 small associated subchorionic hemorrhages. Patient does have a small amount of spotting. She is Rh+. Patient is scheduled to follow-up with Karla Wang tomorrow. Here in the emergency department she was repleted with a liter of fluid and given Zofran. Following this she is tolerating sips of clear liquids as well as crackers. A prescription for Zofran is sent to the pharmacy. Otherwise emergent return precautions were discussed for worsening symptoms. Departure - Departure Disposition: 01 Home, Self Care Clinical Impression: Nausea and vomiting in Subchorionic hemorrhage in first trimester Qualifiers: Fetus number: single or unspecified fetus Qualified Code(s): O41.8X10 - Other specified disorders of amniotic fluid and membranes, first trimester, not applicable or unspecified; O46.8X1 - Other antepartum hemorrhage, first trimester Ovarian cyst Qualifiers: Laterality: right Qualified Code(s): N83.201 - Unspecified ovarian cyst, right side Condition: Stable Record reviewed to determine appropriate education?: Yes Instructions: ED Preg Morning Sickness Prescriptions: Ondansetron Odt [Zofran] 4 mg TL Q6H PRN #20 tablet PRN Reason: Nausea / Vomiting Comments: Conrad you are seen in the emergency department today for 2 days of uncontrolled nausea and vomiting in the first trimester . Here in the emergency department we did give you 1 L of IV fluids as well as some Zofran. Following this you are able to tolerate sips of clear liquids and eat crackers. I am sending a prescription for some Zofran to the [facility] in [place]. The ultrasound today confirms a 7-week 2-day intrauterine with good heart rate. However there are 2 small associated subchorionic hemorrhages. About 50% of women that have subchorionic hemorrhages will go on to have normal pregnancies but they do put you at risk for miscarriage. Please discuss this finding with Karla Wang during your follow-up visit tomorrow. Your Urinalysis today had bacteria in it. However he reported history of interstitial cystitis as well as vulvodynia. 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 They may elect to discuss if antibiotics are appropriate at this stage. In general I recommend frequent small sips of liquids and small bites of food. If at any point you have worsening symptoms, develop any fevers or have uncontrolled vomiting despite the Reglan and Zofran then please return to the ER.
[2022-01-09 17:29] LABS: BILIRUBIN,URINE NEGATIVE (NEGATIVE); GLUCOSE, URINE (UA) NEGATIVE (NEGATIVE); KETONES,URINE (UA) >=80 mg/dL (NEGATIVE); LEUKOCYTE ESTERASE, URINE SMALL (NEGATIVE); NITRITE,URINE NEGATIVE (NEGATIVE); OCCULT BLOOD,URINE NEGATIVE (NEGATIVE); PH,URINE 7.5 PH (5.0-7.5); PROTEIN,URINE 30 mg/dL (NEGATIVE); UROBILINOGEN,URINE 0.2 (NORMAL) E.U./dL (NORMAL)
[2022-01-09 17:30] LABS: CLARITY,URINE HAZY (CLEAR)
[2022-01-09 17:39] LABS: AMORPHOUS SEDIMENT,UR Few /LPF; BACTERIA,URINE Many /HPF (None Seen); MUCUS,URINE Marked Strands; RBC,URINE 0-5 /HPF (0-5); SQUAMOUS EPITHELIAL CELL,UR MANY Squamous (<= Few)
--- NOTE | 2022-01-09 19:05 | Ultrasound Report ---
PROCEDURE: OB First Trimester w/TV INDICATIONS: n/v OUTSIDE/PRIOR DATING DATA: Last menstrual period (LMP): 10/20/2021. LMP-based estimated date of delivery (THERESE): 08/26/2022. First dating scan (date and location): Today 01/09/2022. Estimated date of delivery (THERESE) from first dating scan: 08/26/2022. TECHNIQUE: Real-time scanning was performed of the fetus and maternal pelvic organs, with image documentation. Endovaginal scanning was also performed to better visualize the fetus and maternal ovaries. COMPARISON: None FINDINGS: heart rate is 157 bpm. [place]-rump length is 1.2 cm. Ultrasound age of 7 weeks and 2 days. Measurement variability in dating: +/- 4 weeks by LMP, +/- 7 days by mean sac diameter (use before 6 weeks gestation if crown-rump length not able to be measured), +/- 5 days by crown-rump length (6-12 weeks gestation). Maternal organs: Right corpus luteum is present measuring up to 2.4 cm. There is a simple right ovar jay cyst measuring up to 4.8 x 3.6 x 4 cm. There is 2 areas of perigestational hemorrhage. The larger area measures 2.6 x 1.8 x 1.2 cm. IMPRESSION: Intrauterine living gestation with ultrasound age of 7 weeks and 2 days, consistent with reported LMP . Simple right ovarian cyst measuring up to 4.8 cm. Attention on follow-up OB ultrasound. Small perigestational bleeds. Reviewed by: Parmjit Samayoa MD on 01/09/2022 7:04 PM PDT Approved by: Parmjit Samayoa MD on 01/09/2022 7:04 PM PDT Station ID: [id number]
[2022-01-09 19:18] VITALS: BP 108/66
== END 2022-01-09 19:24 | disposition home or self-care (01) ==
LOC: ED 15:22
DX: O21.9 Vomiting of pregnancy, unspecified (principal); Z3A.01 Less than 8 weeks gestation of pregnancy; O99.891 Other specified diseases and conditions complicating pregnancy; R11.0 Nausea; O99.281 Endocrine, nutritional and metabolic diseases complicating pregnancy, first trimester; E03.9 Hypothyroidism, unspecified; O46.8X1 Other antepartum hemorrhage, first trimester; O34.81 Maternal care for other abnormalities of pelvic organs, first trimester; N83.201 Unspecified ovarian cyst, right side
CPT/HCPCS: 36415; 80048; 81001; 81003; 84702; 85025; 86900; 86901; 87086; 96361; 96374; 99282

== ENCOUNTER 2022-01-13 08:00 | Outpatient (CLI) | payer OTHER ==
[2022-01-13 16:02] LABS: BASOPHILS % (AUTO) 0.4 %; EOSINOPHILS # (AUTO) 0.1 10^3/uL (0.0-0.7); EOSINOPHILS % (AUTO) 1.4 %; HCT - HEMATOCRIT 36.1 % (37.0-47.0); HGB - HEMOGLOBIN 12.8 g/dL (12.0-16.0); LYMPHOCYTES # (AUTO) 1.4 10^3/uL (1.5-3.5); LYMPHOCYTES % (AUTO) 27.7 %; MEAN CORPUSCULAR HEMOGLOBIN 30.8 pg (27.0-31.0); MEAN CORPUSCULAR HGB CONC 35.5 g/dL (32.0-36.0); MEAN PLATELET VOLUME 9.4 fL (7.9-10.8); MONOCYTES # (AUTO) 0.4 10^3/uL (0.0-1.0); MONOCYTES % (AUTO) 7.7 %; NEUTROPHILS # (AUTO) 3.2 10^3/uL (1.5-6.6); NEUTROPHILS % (AUTO) 62.6 %; PLT - PLATELET COUNT 218 10^3/uL (130-450); RED BLOOD COUNT 4.15 10^6/uL (4.20-5.40); RED CELL DISTRIBUTION WIDTH 11.8 % (12.0-15.0); WHITE BLOOD COUNT 5.1 x10^3/uL (4.8-10.8)
[2022-01-14 04:08] LABS: HBsAG SCREEN Negative (Negative); HCV AB <0.1 s/co ratio (0.0-0.9)
[2022-01-14 06:09] LABS: HIV SCREEN 4TH GENERATION Non Reactive (Non Reactive)
[2022-01-14 08:09] LABS: RPR Non Reactive (Non Reactive)
[2022-01-14 10:08] LABS: VARICELLA-ZOSTER AB IGG 424 index (Immune >165)
== END 2022-01-13 23:59 | disposition home or self-care (01) ==
LOC: LAB.R 08:00
PROVIDERS: ATTEND Nurse Practitioner Obstetrics & Gynecology
DX: Z36.89 Encounter for other specified antenatal screening (principal)
CPT/HCPCS: 85025; 85027; 86592; 86762; 86787; 86803; 86850; 86900; 86901; 87340; 87389

== ENCOUNTER 2022-01-13 15:06 | Outpatient (CLI) | payer OTHER ==
[2022-01-13] MEDS ORDERED: LACTATED RINGERS 1,000 ML IV ONE (15:20)
[2022-01-13 15:44] VITALS: BP 105/63
== END 2022-01-13 17:03 | disposition home or self-care (01) ==
LOC: WFO 15:06 → FBP 15:08 → WFO 17:03
PROVIDERS: ATTEND Nurse Practitioner Obstetrics & Gynecology
DX: O21.0 Mild hyperemesis gravidarum (principal); O99.280 Endocrine, nutritional and metabolic diseases complicating pregnancy, unspecified trimester; E86.0 Dehydration
CPT/HCPCS: 96360; J7120

== ENCOUNTER 2022-01-17 15:01 | Outpatient (CLI) | payer OTHER ==
[2022-01-17] MEDS ORDERED: LACTATED RINGERS 1,000 ML IV ONE (15:07)
[2022-01-17 16:51] VITALS: BP 111/61
== END 2022-01-17 16:40 | disposition home or self-care (01) ==
LOC: WFO 15:01 → FBP 15:03 → WFO 16:40
PROVIDERS: ATTEND Nurse Practitioner Obstetrics & Gynecology
DX: O21.0 Mild hyperemesis gravidarum (principal); O99.280 Endocrine, nutritional and metabolic diseases complicating pregnancy, unspecified trimester; E86.0 Dehydration
CPT/HCPCS: 96360; 96361; J7120; 99213

== ENCOUNTER 2022-01-20 15:01 | Outpatient (CLI) | payer OTHER ==
[2022-01-20] MEDS ORDERED: LACTATED RINGERS 1,000 ML IV ONE (15:11)
[2022-01-20] MEDS ORDERED: LACTATED RINGERS 1,000 ML ONE (15:13)
[2022-01-20 15:21] VITALS: BP 96/56
== END 2022-01-20 16:55 | disposition home or self-care (01) ==
LOC: WFO 15:01 → FBP 15:08 → WFO 16:55
PROVIDERS: ATTEND Nurse Practitioner Obstetrics & Gynecology
DX: O21.0 Mild hyperemesis gravidarum (principal); O99.280 Endocrine, nutritional and metabolic diseases complicating pregnancy, unspecified trimester; E86.0 Dehydration
CPT/HCPCS: 96360; J7120; 99213

== ENCOUNTER 2022-01-24 15:10 | Outpatient (CLI) | payer OTHER ==
[2022-01-24] MEDS ORDERED: LACTATED RINGERS 1,000 ML IV ONE (15:19)
[2022-01-24 15:26] VITALS: BP 104/68
== END 2022-01-24 17:10 | disposition home or self-care (01) ==
LOC: WFO 15:10 → FBP 15:12 → WFO 17:10
PROVIDERS: ATTEND Nurse Practitioner Obstetrics & Gynecology
DX: O21.0 Mild hyperemesis gravidarum (principal); O99.280 Endocrine, nutritional and metabolic diseases complicating pregnancy, unspecified trimester; E86.0 Dehydration
CPT/HCPCS: 96360; J7120

== ENCOUNTER 2022-01-27 15:05 | Outpatient (CLI) | payer OTHER ==
[2022-01-27] MEDS ORDERED: LACTATED RINGERS 1,000 ML IV ONE (15:12)
[2022-01-27 15:30] VITALS: BP 103/71
== END 2022-01-27 16:50 | disposition home or self-care (01) ==
LOC: WFO 15:05 → FBP 15:08 → WFO 16:50
PROVIDERS: ATTEND Nurse Practitioner Obstetrics & Gynecology
DX: O21.0 Mild hyperemesis gravidarum (principal); O99.280 Endocrine, nutritional and metabolic diseases complicating pregnancy, unspecified trimester; E86.0 Dehydration
CPT/HCPCS: 96360; J7120

== ENCOUNTER 2022-01-31 14:53 | Outpatient (CLI) | payer OTHER ==
[2022-01-31] MEDS ORDERED: LACTATED RINGERS 1,000 ML IV ONE (15:03)
[2022-01-31 15:19] VITALS: BP 97/63
== END 2022-01-31 16:50 | disposition home or self-care (01) ==
LOC: WFO 14:53 → FBP 14:56 → WFO 16:50
PROVIDERS: ATTEND Nurse Practitioner Obstetrics & Gynecology
DX: O21.1 Hyperemesis gravidarum with metabolic disturbance (principal)
CPT/HCPCS: 96360; J7120

== ENCOUNTER 2022-03-31 10:52 | Outpatient (CLI) | payer OTHER ==
--- NOTE | 2022-03-31 13:14 | Ultrasound Report ---
PROCEDURE: OB Detailed Eval INDICATIONS: SUPERVISION OF OUTSIDE/PRIOR DATING DATA: Last menstrual period (LMP): 10/20/2021. LMP-based estimated date of delivery (THERESE): 08/26/2022. First dating scan (date and location): 01/09/2022. Estimated date of delivery (THERESE) from first dating scan: 08/26/2022. TECHNIQUE: Real-time scanning was performed of the fetus, with image documentation and biometric measurements. COMPARISON: 08/26/2021 FINDINGS: General: A single living intrauterine gestation is present. Presentation: Vertex Placenta: Placental position is anterior, without previa. Amniotic fluid index: 11.2 cm heart rate: 143 beats per minute. Maternal cervical canal: 4.7 cm long; normal length is 2.5 cm or more. biometrics: Biparietal diameter: 4.4 cm, 19 weeks and 1 day Head circumference: 16.3 cm, 19 weeks Abdominal circumference: 14.2 cm, 19 weeks and 4 days Femur length: 3.1 cm, 19 weeks and 3 days Estimated gestational age from initial scan: 18 weeks and 3 days Composite gestational age from present scan: 19 weeks and 1 day Estimated weight and percentile: 294 g, 95th percentile Measurement variability in biometric dating: +/- 10 days from 12-20 weeks gestation, +/- 2 weeks from 20-30 weeks gestation, +/- 3 weeks at 30 weeks gestation or later. Right corpus luteum suspected measuring 21 mm. Anatomic survey: Neuro: Ventricles are normal at less than 10 mm. Cisterna magna is normal at 3-11 mm. Cerebellum is normal in size and morphology. Nuchal skin fold: Normal at less than 6 mm between 14 and 20 weeks gestational age. Face: Nose and lips, facial profile are normal. Spine: No evidence for spina bifida. Heart: 4-chambered heart is present, with normal ventricular outflow tracts. Diaphragm: Diaphragm is intact. Stomach: Left-sided stomach is present. Kidneys: No hydronephrosis. Normal is less than 5 mm in 2nd trimester, less than 7 mm in 3rd trimester. Cord: 3 vessel cord has orthotopic insertion. Bladder: Normal in size. Extremities: All 4 extremities are visualized. IMPRESSION: Intrauterine gestation at 18 weeks and 3 days based on initial ultrasound. biometry at the 95th percentile, slightly greater than expected interval growth. Normal and complete anatomic survey. Normal fluid. Reviewed by: Parmjit Samayoa MD on 03/31/2022 12:13 PM [facility] Approved by: Parmjit Samayoa MD on 03/31/2022 12:13 PM [facility] Station ID: [id number]
== END 2022-03-31 10:53 | disposition home or self-care (01) ==
LOC: DI 10:52
PROVIDERS: ATTEND Nurse Practitioner Obstetrics & Gynecology
DX: Z34.92 Encounter for supervision of normal pregnancy, unspecified, second trimester (principal); Z36.89 Encounter for other specified antenatal screening

== ENCOUNTER 2022-05-29 08:56 | Outpatient (CLI) | payer OTHER ==
[2022-05-29 10:15] LABS: HCT - HEMATOCRIT 35.5 % (37.0-47.0); HGB - HEMOGLOBIN 11.9 g/dL (12.0-16.0); MEAN CORPUSCULAR HEMOGLOBIN 32.2 pg (27.0-31.0); MEAN CORPUSCULAR HGB CONC 33.5 g/dL (32.0-36.0); MEAN CORPUSCULAR VOLUME 95.9 fL (81.0-99.0); MEAN PLATELET VOLUME 9.4 fL (7.9-10.8); RED BLOOD COUNT 3.7 10^6/uL (4.20-5.40); RED CELL DISTRIBUTION WIDTH 12.6 % (12.0-15.0)
== END 2022-05-29 08:57 | disposition home or self-care (01) ==
LOC: LAB 08:56
PROVIDERS: ATTEND Nurse Practitioner Obstetrics & Gynecology
DX: Z36.9 Encounter for antenatal screening, unspecified (principal)
CPT/HCPCS: 36415; 82950; 85027

== ENCOUNTER 2022-05-31 08:10 | Outpatient (CLI) | payer OTHER ==
[2022-05-31 08:47] LABS: GTT GLUCOSE,FASTING 85 mg/dL (70-100)
== END 2022-05-31 08:11 | disposition home or self-care (01) ==
LOC: LAB 08:10
PROVIDERS: ATTEND Nurse Practitioner Obstetrics & Gynecology
DX: O99.810 Abnormal glucose complicating pregnancy (principal)
CPT/HCPCS: 36415; 82951; 82952

== ENCOUNTER 2022-08-25 01:46 | Inpatient (IN) | payer OTHER ==
[2022-08-25] MEDS ORDERED: LACTATED RINGERS 500 ML IV ONE (02:14)
[2022-08-25] MEDS ORDERED: ACETAMINOPHEN 1,000 MG/100 ML 1,000 MG/100 ML BAG IV ONE (02:32)
[2022-08-25 02:33] LABS: BASOPHILS % (AUTO) 0.2 %; EOSINOPHILS % (AUTO) 0.2 %; HCT - HEMATOCRIT 36.7 % (37.0-47.0); HGB - HEMOGLOBIN 12.6 g/dL (12.0-16.0); LYMPHOCYTES # (AUTO) 0.7 10^3/uL (1.5-3.5); LYMPHOCYTES % (AUTO) 5.3 %; MEAN CORPUSCULAR HEMOGLOBIN 30.6 pg (27.0-31.0); MEAN CORPUSCULAR HGB CONC 34.3 g/dL (32.0-36.0); MEAN CORPUSCULAR VOLUME 89.1 fL (81.0-99.0); MONOCYTES # (AUTO) 0.4 10^3/uL (0.0-1.0); NEUTROPHILS # (AUTO) 11.6 10^3/uL (1.5-6.6); NEUTROPHILS % (AUTO) 90.8 %; PLT - PLATELET COUNT 277 10^3/uL (130-450); RED BLOOD COUNT 4.12 10^6/uL (4.20-5.40); RED CELL DISTRIBUTION WIDTH 12.7 % (12.0-15.0); WHITE BLOOD COUNT 12.7 x10^3/uL (4.8-10.8)
[2022-08-25 02:45] LABS: ALBUMIN 3.1 g/dL (3.2-5.5); ALBUMIN/GLOBULIN RATIO 0.8 (1.0-2.2); BILIRUBIN,TOTAL 0.6 mg/dL (0.2-1.0); CALCIUM 8.7 mg/dL (8.5-10.3); CREATININE 0.6 mg/dL (0.4-1.0); POTASSIUM 3.7 mmol/L (3.5-5.0); TOTAL PROTEIN 6.9 g/dL (6.7-8.2)
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
[2022-08-25] MEDS: cefTRIAXone 1 GM in SODIUM CHLORIDE 0.9% MINIBAG 100 ML IV SCH (04:01)
[2022-08-25] MEDS ORDERED: LACTATED RINGERS 1,000 ML IV PRN (05:29)
--- NOTE | 2022-08-25 10:12 | PROVIDER PROGRESS NOTE ---
Subjective - Subjective Subjective: S: Patient sleeping soundly in bed. Her is supportive at the bedside. O: Heart RRR w/o M/G/R, lungs CTAB Afebrile\ FHR baseline 120s, moderate variability, + accels, no decels Contractions palpate mild intermittently with soft resting tone S/p 2L LR with 125mL/hr maintenance A: 26yo @ 39.6wks gestation Pyelonephritis FHR Category I P: Continue Rocephin once daily. Repeat CBC and CMP 12hrs from previous labs. Patient may discharge home with initiation of oral antibiotics once she is afebrile x 24 hours. NST q 4 hours. Reviewed plan of care with sales operations lead physician. Objective - Vital Signs/Intake & Output Vital Signs: Vital Signs x48h Temp Pulse Resp BP Pulse Ox 08/25/22 08:50 36.8 C 101 H 18 113/63 99 08/25/22 06:00 36.7 C 82 18 114/72 08/25/22 02:05 37.3 C 113/59 L 100 Intake & Output: Intake & Output 08/22/22 08/23/22 08/24/22 08/25/22 23:59 23:59 23:59 23:59 Intake Total 1700.000 Balance 1700.000 - Lab Results Fish Bones: 08/25/22 02:25 08/25/22 02:25 Other Labs: Lab Results x24hrs 08/25/22 08/25/22 08/25/22 Range/Units 02:25 02:25 02:25 WBC 12.7 H (4.8-10.8) x10^3/uL RBC 4.12 L (4.20-5.40) 10^6/uL Hgb 12.6 (12.0-16.0) g/dL Hct 36.7 L (37.0-47.0) % MCV 89.1 (81.0-99.0) fL MCH 30.6 (27.0-31.0) pg MCHC 34.3 (32.0-36.0) g/dL RDW 12.7 (12.0-15.0) % Plt Count 277 (130-450) 10^3/uL MPV 10.0 (7.9-10.8) fL Neut # (Auto) 11.6 H (1.5-6.6) 10^3/uL Lymph # (Auto) 0.7 L (1.5-3.5) 10^3/uL [place] # (Auto) 0.4 (0.0-1.0) 10^3/uL Eos # (Auto) 0.0 (0.0-0.7) 10^3/uL Baso # (Auto) 0.0 (0.0-0.1) 10^3/uL Absolute Nucleated RBC 0.00 x10^3/uL Nucleated RBC % 0.0 /100WBC Sodium 136 (135-145) mmol/L Potassium 3.7 (3.5-5.0) mmol/L Chloride 102 (101-111) mmol/L Carbon Dioxide 19 L (21-32) mmol/L Anion Gap 15.0 H (6-13) BUN 12 (6-20) mg/dL Creatinine 0.6 (0.4-1.0) mg/dL Estimated GFR (MDRD) 122 (>89) Glucose 100 (70-100) mg/dL Lactic Acid 1.0 (0.5-2.2) mmol/L Calcium 8.7 (8.5-10.3) mg/dL Total Bilirubin 0.6 (0.2-1.0) mg/dL AST 18 (10-42) IU/L ALT 11 (10-60) IU/L Alkaline Phosphatase 119 (42-121) IU/L Total Protein 6.9 (6.7-8.2) g/dL Albumin 3.1 L (3.2-5.5) g/dL Globulin 3.8 (2.1-4.2) g/dL Albumin/Globulin Ratio 0.8 L (1.0-2.2)
[2022-08-25 14:38] LABS: BASOPHILS % (AUTO) 0.2 %; EOSINOPHILS % (AUTO) 0.1 %; HCT - HEMATOCRIT 34.6 % (37.0-47.0); HGB - HEMOGLOBIN 11.8 g/dL (12.0-16.0); LYMPHOCYTES # (AUTO) 0.7 10^3/uL (1.5-3.5); LYMPHOCYTES % (AUTO) 7.7 %; MEAN CORPUSCULAR HEMOGLOBIN 31.6 pg (27.0-31.0); MEAN CORPUSCULAR HGB CONC 34.1 g/dL (32.0-36.0); MEAN CORPUSCULAR VOLUME 92.5 fL (81.0-99.0); MEAN PLATELET VOLUME 9.7 fL (7.9-10.8); MONOCYTES # (AUTO) 0.7 10^3/uL (0.0-1.0); MONOCYTES % (AUTO) 7.2 %; NEUTROPHILS % (AUTO) 84.5 %; PLT - PLATELET COUNT 221 10^3/uL (130-450); RED BLOOD COUNT 3.74 10^6/uL (4.20-5.40); RED CELL DISTRIBUTION WIDTH 12.9 % (12.0-15.0); WHITE BLOOD COUNT 9.5 x10^3/uL (4.8-10.8)
[2022-08-25 15:02] LABS: ALBUMIN 2.8 g/dL (3.2-5.5); ALBUMIN/GLOBULIN RATIO 0.8 (1.0-2.2); BILIRUBIN,TOTAL 0.6 mg/dL (0.2-1.0); CALCIUM 8.4 mg/dL (8.5-10.3); CREATININE 0.6 mg/dL (0.4-1.0); POTASSIUM 3.7 mmol/L (3.5-5.0); TOTAL PROTEIN 6.3 g/dL (6.7-8.2)
[2022-08-26] MEDS: cefTRIAXone 1 GM in SODIUM CHLORIDE 0.9% MINIBAG 100 ML IV SCH (03:45)
[2022-08-26] MEDS: SODIUM CHLORIDE FLUSH 0.9% 10 ML SYRINGE IVP PRN ×2 (03:50→04:31)
[2022-08-26 03:54] LABS: BASOPHILS % (AUTO) 0.3 %; EOSINOPHILS # (AUTO) 0.1 10^3/uL (0.0-0.7); EOSINOPHILS % (AUTO) 0.7 %; HCT - HEMATOCRIT 32.1 % (37.0-47.0); HGB - HEMOGLOBIN 10.6 g/dL (12.0-16.0); LYMPHOCYTES # (AUTO) 1.1 10^3/uL (1.5-3.5); LYMPHOCYTES % (AUTO) 13.8 %; MEAN CORPUSCULAR HEMOGLOBIN 31.2 pg (27.0-31.0); MEAN CORPUSCULAR VOLUME 94.4 fL (81.0-99.0); MEAN PLATELET VOLUME 9.9 fL (7.9-10.8); MONOCYTES # (AUTO) 0.9 10^3/uL (0.0-1.0); MONOCYTES % (AUTO) 11.3 %; NEUTROPHILS # (AUTO) 5.7 10^3/uL (1.5-6.6); NEUTROPHILS % (AUTO) 73.5 %; PLT - PLATELET COUNT 195 10^3/uL (130-450); RED CELL DISTRIBUTION WIDTH 13.1 % (12.0-15.0); WHITE BLOOD COUNT 7.7 x10^3/uL (4.8-10.8)
--- NOTE | 2022-08-26 08:52 | Discharge Plan ---
Discharge Plan Problem Reviewed?: Yes Disposition: Home, Self Care Condition: Stable Diet: Regular Activity Restrictions: No Restrictions Shower Restrictions: No Driving Restrictions: No Weight Bearing: Full Weight Instruction Topics: Pyelonephritis Dc, Urinary Tract Infecs Women No Smoking: If you smoke, Please STOP! Call for help. Follow-up with: Karla Velasquez CNM, [facility] [Provider Admit Priv/Credential] -
[2022-08-26] MEDS ORDERED: NITROFURANTOIN MACRO 100 MG CAPSULE PO SCH (09:00)
--- NOTE | 2022-08-26 09:07 | DISCHARGE SUMMARY ---
Discharge Summary Condition at Discharge: Stable Discharge Disposition: 01 Home, Self Care - HOSPITAL COURSE Hospital Course: Date of Admission: 08/24/2022 Date of Discharge: 08/26/2022 Diagnosis on Admission: 1. 26yo at 39.6wks gestation 2. Acute pyelonephritis Diagnosis on Discharge: 1. 27yo @ 40.1wks gestation 2. Acute pyelonephritis - managed Brief History: [facility] a [facility] who presented on 08/24/2022 with complaints severe back pain that she felt could be labor. Upon arrival she was noted to be 2/25/-3, posterior and vertex with intact membranes. tachycardia to 180bpm in the presence of recent UTI diagnosis for which she has not obtained medication for, low grade fever, and elevated white blood cell count, in addition to significant left CVA tenderness, the decision was made to admit patient for treatment and management for actue pyelonephritis. She has received 2 doses of Rocephin via IV for treatment, 2 Liters of LR for hydration, and her WBC count has returned to normal. Aside from her initial temperature she has remained afebrile throughout her hospital course. She is feeling significantly improved and will be discharged home today with instructions to initiate her 14 day course of PO Macrobid for treatment and it has been sent to [facility] per her request. Secondary to her advanced gestation she will not be given a daily UTI suppressant as she will be postdates prior to the completion of her antibiotic therapy. Patient will be discharge home today. She intends to follow [facility] with [facility] at [facility] in 4 days or sooner if needed. She has been given precautions to call if she has development of any fever, chills, malaise, or back pain. In addition she has been given routine labor precautions and she has the emergency contact information. Physical Exam: Normocephalic, atraumatic. Heart RRR w/o M/G/R, lungs CTAB, abdomen gravid, soft, nontender. Left CVA tenderness mild and significantly improved. FHR baseline 130s, moderate variability, + accels, no decels. Occasional contractions palpate mild with soft resting tone. SVE deferred. Bilateral LE's no edema. Mood is good. - ALLERGIES Allergies/Adverse Reactions: Allergies Allergy/AdvReac Type Severity Reaction Status Date / Time No Known Drug Allergies Allergy Verified 01/09/22 15:36 - MEDICATIONS Home Medications: Ambulatory Orders Medication Instructions Recorded Confirmed Ondansetron Odt [Zofran] 4 mg TL Q6H PRN #20 tablet 01/09/22 - LABS Result Diagrams: 08/26/22 03:38 08/25/22 14:31
[2022-08-26 09:44] VITALS: BP 98/55
--- NOTE | 2022-09-01 15:07 | PROCEDURE REPORT ---
- HPI Diagnosis/Indication for NST: Other Current EDU 08/26/22 Gestation 40 Weeks and 0 Days 1 Para 1 Vital Signs Temperature 37.3 C 08/25/22 02:05 Blood Pressure 113/59 L 08/25/22 02:05 O2 Saturation 100 08/25/22 02:05 Temperature 36.5 C 08/26/22 09:41 Heart Rate 107 H 08/26/22 09:41 Respiratory Rate 20 08/26/22 09:41 Blood Pressure 98/55 L 08/26/22 09:41 O2 Saturation 99 08/26/22 04:34 If not protocol: Oxygen Flow, liters/minute - NST Procedure NST Procedure Start Date 08/26/22 Start Time 08:04 Stop Time 08:59 Vibroacoustic Stimulation Used No Patient States Movement Yes - Results and Plan Findings/Impression: NST reactive. FHR baseline 130s, moderate variability, + accels, no decels Contractions palpate strong every 2-4 minutes with soft resting tone
== END 2022-08-26 09:38 | disposition home or self-care (01) | DRG 832 ==
LOC: WFO 01:46 → FBP 01:53 → WFO 03:13 → FBP 03:14
PROVIDERS: ADMIT Nurse Practitioner Obstetrics & Gynecology; ATTEND Nurse Practitioner Obstetrics & Gynecology
DX: O23.03 Infections of kidney in pregnancy, third trimester (principal); O47.1 False labor at or after 37 completed weeks of gestation; Z3A.40 40 weeks gestation of pregnancy; O99.283 Endocrine, nutritional and metabolic diseases complicating pregnancy, third trimester; E03.9 Hypothyroidism, unspecified; O99.343 Other mental disorders complicating pregnancy, third trimester; F41.9 Anxiety disorder, unspecified; Z62.819 Personal history of unspecified abuse in childhood; B96.20 Unspecified Escherichia coli [E. coli] as the cause of diseases classified elsewhere
CPT/HCPCS: 36415; 59025; 80053; 83605; 85025; 96374; 99215; A9270; J0131; J7120; 96365

== ENCOUNTER 2022-08-27 04:33 | Inpatient (IN) | payer OTHER ==
[2022-08-27] MEDS ORDERED: fentaNYL 100 MCG/2 ML VIAL IVP PRN (05:00)
[2022-08-27] MEDS ORDERED: SODIUM CHLORIDE FLUSH 0.9% 10 ML SYRINGE IVP PRN (05:00)
[2022-08-27] MEDS ORDERED: OXYTOCIN/SODIUM CHLORIDE 500 ML IV PRN (05:00)
[2022-08-27] MEDS ORDERED: lidocaine 1% 20 ML MDV ID PRN (05:00)
[2022-08-27] MEDS ORDERED: CARBOPROST TROMETHAMINE 250 MCG/ML AMP IM PRN (05:00)
[2022-08-27] MEDS ORDERED: METHYLERGONOVINE 0.2 MG/ML VIAL IM PRN (05:00)
[2022-08-27] MEDS ORDERED: TRANEXAMIC ACID IN NACL 1,000 MG/100 ML BAG IV PRN (05:00)
[2022-08-27] MEDS ORDERED: LACTATED RINGERS 1,000 ML IV SCH (05:00)
[2022-08-27] MEDS ORDERED: TERBUTALINE 1 MG/ML VIAL SUBQ PRN (05:00)
[2022-08-27] MEDS ORDERED: hydrALAZINE INJ 20 MG/ML VIAL IVP PRN ×2 (05:00)
[2022-08-27] MEDS ORDERED: LABETALOL 20 MG/4 ML SYRINGE IVP PRN ×3 (05:00)
[2022-08-27] MEDS ORDERED: miSOPROStoL 200 MCG TABLET BC PRN (05:00)
[2022-08-27] MEDS ORDERED: miSOPROStoL 200 MCG TABLET PR PRN (05:00)
[2022-08-27] MEDS ORDERED: OXYTOCIN 10 UNIT/ML VIAL IM PRN (05:00)
[2022-08-27] MEDS ORDERED: NIFEdipine 10 MG CAPSULE PO PRN (05:00)
[2022-08-27] MEDS ORDERED: SODIUM CHLORIDE FLUSH 0.9% 10 ML SYRINGE IVP SCH (05:00)
[2022-08-27 05:48] LABS: BASOPHILS % (AUTO) 0.2 %; EOSINOPHILS % (AUTO) 0.2 %; HCT - HEMATOCRIT 36.5 % (37.0-47.0); HGB - HEMOGLOBIN 12.3 g/dL (12.0-16.0); LYMPHOCYTES # (AUTO) 0.9 10^3/uL (1.5-3.5); LYMPHOCYTES % (AUTO) 9.3 %; MEAN CORPUSCULAR HEMOGLOBIN 31.1 pg (27.0-31.0); MEAN CORPUSCULAR HGB CONC 33.7 g/dL (32.0-36.0); MEAN CORPUSCULAR VOLUME 92.2 fL (81.0-99.0); MEAN PLATELET VOLUME 9.4 fL (7.9-10.8); MONOCYTES % (AUTO) 10.6 %; NEUTROPHILS # (AUTO) 7.5 10^3/uL (1.5-6.6); NEUTROPHILS % (AUTO) 79.4 %; PLT - PLATELET COUNT 227 10^3/uL (130-450); RED BLOOD COUNT 3.96 10^6/uL (4.20-5.40); RED CELL DISTRIBUTION WIDTH 12.9 % (12.0-15.0); WHITE BLOOD COUNT 9.4 x10^3/uL (4.8-10.8)
--- NOTE | 2022-08-27 07:47 | DELIVERY NOTE ---
Delivery Note - Labor Labor: positive: Spontaneous - Delivery Method Delivery Method: positive: Spontaneous vaginal delivery - Presentation Presentation: positive: Vertex, NATHANIEL - left occiput anterior - Nuchal Cord Nuchal Cord: positive: None - Amniotic Fluid Description Amniotic Fluid Description: positive: Thick meconium - Episiotomy Type Episiotomy Type: positive: None - Laceration Laceration: positive: None - Delivery Outcome Delivery Outcome: positive: Livebirth - : positive: Placed in direct skin contact with mother, Bulb syringe, Stimulated, Warmed, [place] used [place] sex: positive: Female - Cord Cord: positive: 3 vessels - Placenta Placenta: positive: Intact, Spontaneous - Estimated Blood Loss Estimated Blood Loss (in cc): 150 - Post Delivery Events Post Delivery Events: positive: No post delivery events - Delivery Comments (Free Text/Narrative) Delivery Comments (Free Text/Narrative): labor: this 27yo @ 40.1wks gestation by LMP c/w 7.2wk U/S who presented on 08/27/2022 with c/o contractions and rupture of membranes at 0230. Cervix was posterior upon arrival and a complete SVE was not performed and she was noted to have thick meconium stained amniotic fluid and vertex position. FHR pattern demonstrated Category II pattern throughout labor secondary to intermittent variable decelerations however overall remained reassuring. She progressed to c/c/+1 @ 0652 with onset of active pushing. : Normal SVB of viable female on 08/27/2022 @ 0656. No nuchal cord. The was placed on maternal abdomen, stimulated, dried, and placed skin to skin. 's were 9/9 at 1 and 5 minutes respectively. The umbilical cord was allowed to stop pulsating at which time it was doubly clamped by CNM and cut by FOB. Pt declined active management of the third stage. Placenta delivered spontaneously and intact at 0705. EBL 150mL. Fourth stage: uterine fundus firm and there is no excessive bleeding. The perineum, vagina, and cervix were inspected and noted to be intact. initiated. Family bonding well. Both mother and baby were left in stable condition.
[2022-08-27] MEDS ORDERED: HYDROCORTISONE 1% CREAM 28 GM TUBE PR PRN (07:49)
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
[2022-08-27] MEDS: IBUPROFEN 800 MG TABLET PO SCH ×3 (08:35→22:39)
[2022-08-27] MEDS: ACETAMINOPHEN 500 MG TABLET PO SCH ×2 (08:35→16:31)
[2022-08-27] MEDS: DOCUSATE SODIUM 100 MG CAPSULE PO SCH ×2 (08:35→21:46)
[2022-08-27] MEDS ORDERED: NITROFURANTOIN MACRO 100 MG CAPSULE PO SCH (09:00)
[2022-08-27] MEDS ORDERED: WITCH HAZEL/GLYCERIN 1 PAD TOP PRN (21:56)
[2022-08-28] MEDS: ACETAMINOPHEN 500 MG TABLET PO SCH ×2 (00:11→08:26)
[2022-08-28] MEDS: IBUPROFEN 800 MG TABLET PO SCH ×2 (04:03→09:59)
[2022-08-28 08:57] VITALS: BP 102/61
--- NOTE | 2022-08-28 09:38 | Discharge Plan ---
Discharge Plan Problem Reviewed?: Yes Disposition: Home, Self Care Condition: Good Diet: Regular Activity Restrictions: No Restrictions Shower Restrictions: No Driving Restrictions: No Weight Bearing: Full Weight Instruction Topics: Vaginal After No Smoking: If you smoke, Please STOP! Call for help. Follow-up with: Karla Velasquez CNM, ARNP [Provider Admit Priv/Credential] - 1 Week
[2022-08-28] MEDS: DOCUSATE SODIUM 100 MG CAPSULE PO SCH (09:40)
--- NOTE | 2022-08-28 09:49 | DISCHARGE SUMMARY ---
Discharge Summary Condition at Discharge: Good Discharge Disposition: 01 Home, Self Care - HOSPITAL COURSE Hospital Course: Date of Admission: 08/27/2022 Date of Discharge: 08/28/2022 Diagnosis on Admission: 1. 27yo @ 40.1wks gestation by LMP c/w 7.2wk U/S 2. Active labor 3. GBS negative 4. FHR Category I Diagnosis on Discharge: 1. 27yo PPD#1 s/p TSVD viable female infant 2. 3. Normal recovery Brief history: She is a patient of [facility] who presented on 08/27/2022 in active labor. SVE posterior, -1 and vertex with grossly ruptured membranes which was initially noted to be clear fluid and within an hour of arrival was noted to be thick meconium stained. She progressed precipitously to spontaneously deliver a viable female infant on 08/27/2022 @ 0656 over intact perineum. Apgars were 9/9 at 1 and 5 minutes respectively. EBL 150mL. She has been doing well in her course. She is ambulating and tolerating a regular diet. She is urinating without difficulty and her lochia is normal. Her pain is well controlled with oral medications. She is bonding well with her baby and she is without difficulty. She will be discharged home today on day #1 with instructions to continue taking her vitamin while and to continue taking ibuprofen and tylenol over the counter as needed for pain management. In addition she has been instructed to complete her previously prescribed nitrofurantoin antibiotic course for acute pyelonephritis. She intends to follow up with myself at [facility] in 1 week for routine visit or sooner if needed. She has been given precautions to call if she has any worsening fevers, chills, abdominal pain, increased vaginal bleeding or foul smelling vaginal discharge. Physical Exam: Normocephalic, atraumatic. Heart RRR w/o M/G/R, lungs CTAB, abdomen soft and nontender with fundus firm at U-1, perineum intact, light lochia rubra, mood is good. - ALLERGIES Allergies/Adverse Reactions: Allergies Allergy/AdvReac Type Severity Reaction Status Date / Time No Known Drug Allergies Allergy Verified 01/09/22 15:36 - MEDICATIONS Home Medications: Ambulatory Orders Medication Instructions Recorded Confirmed Ondansetron Odt [Zofran] 4 mg TL Q6H PRN #20 tablet 01/09/22 - LABS Result Diagrams: 08/27/22 05:39
--- NOTE | 2022-08-28 11:56 | Labor Flowsheet ---
Labor Flowsheet Datetime Report Generated by CPN: 08/28/2022 11:56 Datetime: 08/28/2022 08:44 VITAL SIGNS NBP Sys/Emerald/Mean (mmHg): 102 : 61 : 69 Pulse: 92 Datetime: 08/27/2022 19:00 Stage of : Datetime: 08/27/2022 08:37 PAIN Pain Scale: 0 Datetime: 08/27/2022 08:15 Respirations: 16 SpO2 (%): 99 Temperature (C): 36.6 Temperature Route: Oral Datetime: 08/27/2022 06:55 UTERINE ACTIVITY Monitor Mode: External Frequency (min): 2-3 Quality: Strong Duration (sec): 70-120 Pattern: Normal: <= 5 Contractions in 10 Minutes Resting Tone (Palpate): Relaxed FHR Baseline Rate : 150 FHR Baseline Changes: No Baseline Change Variability: Moderate 6-25 bpm Accelerations: 15X15 Decelerations: Early; Variable Actions for Decelerations: Hands and Knees Category: Category II Comments: Pushing, provider and nursing staff in room Stage 2 Comments: head Datetime: 08/27/2022 06:53 Provider Notified (Name): Dr. Rivera Communication Comments: MD called and asked to come to bedside for delivery d/t heavy meconium seen at admission Datetime: 08/27/2022 06:52 VAGINAL EXAM Dilatation (cm): 10.0 Effacement (%): 100 Station: 1 Datetime: 08/27/2022 06:51 Vaginal Exam Comments: Anterior lip noted by provider STAGE 2 Pushing: Urge to Push Pushing Position: Pushing with Contractions Pushing Progress: Descent with Pushing Datetime: 08/27/2022 06:44 Patient Care Comments: emesis Datetime: 08/27/2022 06:30 Contraction Comments: Occasional UCs, pt on hands and knees, provider in room ASSESSMENT A Monitor Mode: Telemetry Datetime: 08/27/2022 06:29 Monitor Interventions for FHR: Ultrasound Adjusted Datetime: 08/27/2022 06:18 Pain Presence: Intermittent Pain Type: Contraction Pain Location: Abdomen Pain Assessment Comments: nitrous started. Moaning with ctx LaborFlag: Labor Datetime: 08/27/2022 06:08 Strip Reviewed by: HEfraín Edmond, RN Notification Reason: Status Update; Status; Labor Status; Uterine Activity Datetime: 08/27/2022 05:30 COMMUNICATION Communication: RN at Bedside Datetime: 08/27/2022 05:29 I/O Interventions: Up to BR Datetime: 08/27/2022 05:04 Patient Position/Activity: Hands-Knees Datetime: 08/27/2022 04:55 Exam by: H. Edmond RN Membrane Status: Ruptured Amniotic Fluid Color: Heavy Meconium Amniotic Fluid Amount: Large Vaginal Bleeding: Normal Show Cervix, Consistency: Soft Cervix, Position: Posterior Datetime: 08/26/2022 04:25 PATIENT CARE Oxygen Method: Room Air Datetime: 08/26/2022 03:57 MATERNAL ASSESSMENT Level of Consciousness: Alert Datetime: 08/26/2022 00:23 Monitor Interventions for UA: Orestes Adjusted Datetime: 08/25/2022 10:02 Pain Coping: Sleeping
== END 2022-08-28 11:45 | disposition home or self-care (01) | DRG 806 ==
LOC: WFO 04:33 → FBP 04:35 → WFO 07:05
PROVIDERS: ADMIT Nurse Practitioner Obstetrics & Gynecology; ATTEND Nurse Practitioner Obstetrics & Gynecology
PROC: 10E0XZZ Delivery of Products of Conception, External Approach (ICD-10-PCS; principal; 2022-08-27)
DX: O48.0 Post-term pregnancy (principal); N10 Acute pyelonephritis; Z37.0 Single live birth; O98.82 Other maternal infectious and parasitic diseases complicating childbirth; Z3A.40 40 weeks gestation of pregnancy; O77.0 Labor and delivery complicated by meconium in amniotic fluid
CPT/HCPCS: 36415; 85025; 86850; 86900; 86901; 99215; A9270; J7120

== ENCOUNTER 2023-02-23 00:15 | Emergency (ER) | payer OTHER ==
[2023-02-23 00:33] VITALS: BP 118/77; O2SAT 100
--- NOTE | 2023-02-23 00:51 | ED Physician Documentation ---
History of Present Illness - Stated complaint Stated Complaint: RT NUMB FOOT - Chief complaint Chief Complaint: Ext Problem - History obtained from History obtained from: Patient - Additonal information Additional information: 27yF with history of recent covid infection 2 weeks ago p/w R 5th toe discoloration and numbness since yesterday. denies trauma to the toe. denies swelling. no calf tenderness or swelling. PD PAST MEDICAL HISTORY - Past Medical History Past Medical History: Yes Cardiovascular: None Respiratory: None Neuro: Other Endocrine/Autoimmune: HyPOthyroidism GI: None BABY NURSE: None : None HEENT: None Psych: None Musculoskeletal: None Derm: None - Past Surgical History Past Surgical History: No - Present Medications Home Medications: Ambulatory Orders Medication Instructions Recorded Confirmed Levothyroxine [Synthroid] 75 mcg PO DAILY 02/23/23 - Allergies Allergies/Adverse Reactions: Allergies Allergy/AdvReac Type Severity Reaction Status Date / Time No Known Drug Allergies Allergy Verified 02/23/23 00:25 - Social History Does the pt smoke?: No Smoking Status: Never smoker Does the pt drink ETOH?: No Does the pt have substance abuse?: No - Immunizations Immunizations are current?: Yes - POLST Patient has POLST: No PD ED PE NORMAL - Vitals Vital signs reviewed: Yes - General General: Alert and oriented X 3, No acute distress, Well developed/nourished - HEENT HEENT: Atraumatic, PERRL, EOMI - Neck Neck: Supple, no meningeal sign - Derm Derm: Normal color, Warm and dry, Other (R distal fifth toe with purplish discoloration and cool to touch at pip joint. nontender to palpation. normal movement. subjective diminished sensation. 2+ DP pulse RLE) Results - Vitals Vitals: Vital Signs - 24 hr 02/23/23 00:18 Temperature 36.1 C L Heart Rate 71 Respiratory 17 Rate Blood Pressure 118/77 O2 Saturation 100 Oxygen O2 Source Room air PD Medical Decision Making - ED course ED course: 27yF presents with purplish discoloration of the pip joint of R 5th toe starting today, and numbness progressive since yesterday. she has intact DP pulses and normal objective sensation, movement and cap refill. the discoloration appears similar to chilblains and suspect given her recent covid infection this is covid toes phenomenon. advised daily baby aspirin and to return if worsening. return precautions given. plan to f/u with pcp. Departure - Departure Disposition: 01 Home, Self Care Clinical Impression: COVID toes Condition: Stable Comments: You were seen in the emergency department for Numbness and discoloration of the fifth toe, likely caused by cold induced constriction of small arteries and veins in the area of discoloration. This usually resolves spontaneously in 1-3 weeks. We have been seeing this condition in patients after covid infections and it may be similar to chilblains. You should make sure you keep your toes warm and bundle well throughout the day to promote good blood flow. Please follow-up with your primary care provider and return to the emergency department if you experience a spread of the area of numbness, have any new or worsening symptoms or other concerns.
== END 2023-02-23 01:00 | disposition home or self-care (01) ==
LOC: ED 00:15
DX: R20.0 Anesthesia of skin (principal); R23.8 Other skin changes; U09.9 Post COVID-19 condition, unspecified
CPT/HCPCS: 99281; 99282

== ENCOUNTER 2023-11-23 11:27 | Outpatient (CLI) | payer OTHER ==
[2023-11-23 11:37] LABS: BASOPHILS # (AUTO) 0.1 10^3/uL (0.0-0.1); BASOPHILS % (AUTO) 0.9 %; EOSINOPHILS # (AUTO) 0.1 10^3/uL (0.0-0.7); EOSINOPHILS % (AUTO) 2.1 %; HCT - HEMATOCRIT 40.9 % (37.0-47.0); HGB - HEMOGLOBIN 13.6 g/dL (12.0-16.0); LYMPHOCYTES # (AUTO) 1.6 10^3/uL (1.5-3.5); LYMPHOCYTES % (AUTO) 31.1 %; MEAN CORPUSCULAR HEMOGLOBIN 30.5 pg (27.0-31.0); MEAN CORPUSCULAR HGB CONC 33.3 g/dL (32.0-36.0); MEAN CORPUSCULAR VOLUME 91.7 fL (81.0-99.0); MEAN PLATELET VOLUME 9.3 fL (7.9-10.8); MONOCYTES # (AUTO) 0.4 10^3/uL (0.0-1.0); MONOCYTES % (AUTO) 6.8 %; NEUTROPHILS # (AUTO) 3.1 10^3/uL (1.5-6.6); NEUTROPHILS % (AUTO) 58.9 %; PLT - PLATELET COUNT 261 10^3/uL (130-450); RED BLOOD COUNT 4.46 10^6/uL (4.20-5.40); RED CELL DISTRIBUTION WIDTH 12.3 % (12.0-15.0); WHITE BLOOD COUNT 5.3 x10^3/uL (4.8-10.8)
[2023-11-23 12:07] LABS: THYROID STIMULATING HORMONE 2.15 uIU/mL (0.34-5.60)
== END 2023-11-23 11:28 | disposition home or self-care (01) ==
LOC: LAB 11:27
PROVIDERS: ATTEND Nurse Practitioner Obstetrics & Gynecology
DX: E03.9 Hypothyroidism, unspecified (principal); R53.83 Other fatigue
CPT/HCPCS: 36415; 84439; 84443; 85025